=== PATIENT | female | born 1935 | race African-American/Black ===

== ENCOUNTER → 2016-12-20 | Outpatient (CLI) | payer MEDICARE, OTHER | LOC: RAD 12:22 | PROVIDERS: ATTEND Physician Assistant | DX: R10.32 Left lower quadrant pain (principal) | CPT/HCPCS: 74176 ==

== ENCOUNTER → 2017-03-27 | Outpatient (CLI) | payer MEDICARE, OTHER ==
--- NOTE | 2017-03-27 17:08 | RADIOLOGY REPORT (SQ) ---
EXAM DESCRIPTION: CAROTID DOPPLER COMPLETED DATE/TIME: 03/27/2017 2:27 pm REASON FOR STUDY: STENOSIS I65.29 I65.29 OCCLUSION AND STENOSIS OF UNSPECIFIED CAROTID ARTERY COMPARISON: 06/23/2014 TECHNIQUE: Grayscale ultrasound, Doppler velocity and spectra, and color Doppler images acquired of the extra-cranial carotid and vertebral arteries. Images stored on PACS. LIMITATIONS: None. FINDINGS: RIGHT CAROTID CCA Velocities: Within normal limits. ICA Velocities Peak systolic 0.78 m/s. End diastolic 0.22 m/s. Proximal ICA/CCA peak systolic ratio 1.0. There is calcific plaque at the right carotid bifurcation causing shadowing. Immediately distal to jf barrios shadowing plaque, right ICA velocities suggest less than 50% diameter stenosis. There is external carotid artery stenosis with peak systolic velocity 2.7 m/sec. LEFT CAROTID CCA Velocities: Within normal limits. ICA Velocities Peak systolic 2.8 m/s. End diastolic 0.45 m/s. Proximal ICA/CCA peak systolic ratio 2.6. There is calcific plaque at the left carotid bifurcation. Left ICA exhibits increased peak systolic and end diastolic velocities and turbulent flow indicating greater than 70% stenosis. This is simila r compared to study from 06/23/2014. Left external carotid artery stenosis with peak systolic velocit y 1.8 m/sec. VERTEBRAL ARTERIES: Antegrade flow. Normal waveforms. SUBCLAVIAN ARTERIES: Not examined OTHER: No other significant finding. IMPRESSION: Atherosclerotic disease at both carotid bifurcations. On the right, no flow significant ICA stenosis is present. On the left, there is greater than 70% internal carotid artery stenosis, s imilar compared to the study in 2013. COMMENT: Quality ID #[id number]: Velocity criteria are extrapolated from the diameter data as defined by jf barrios Society of Radiologists in Ultrasound Consensus Conference. Radiology 2003: 229; 340-346. TECHNICAL DOCUMENTATION: JOB ID: [id number]- All Rights Reserved
== END ==
LOC: SP 12:56
PROVIDERS: ATTEND Internal Medicine Cardiovascular Disease
DX: I65.29 Occlusion and stenosis of unspecified carotid artery (principal)
CPT/HCPCS: 93880

== ENCOUNTER 2017-12-17 17:38 | Emergency (ER) | payer MEDICARE, OTHER ==
--- NOTE | 2017-12-17 18:34 | ER Document Report ---
ED Medical Screen (RME) - General Chief Complaint: Chest Pain Stated Complaint: CHEST PAIN Time Seen by Provider: 12/17/17 18:33 Notes: Patient has had 2 weeks of exertional chest pain and shortness of breath. She was referred by Dr. Ingram to Dr. Peterson. She saw Dr. Peterson today and he referred her to the emergency department. TRAVEL OUTSIDE OF THE [place]S. IN LAST 30 DAYS: No - Related Data Allergies/Adverse Reactions: Sulfa (Sulfonamide Antibiotics) Allergy (Severe, Verified 06/20/11 07:25) Anaphylaxis Past Medical History - Social History Chew tobacco use (# tins/day): No Frequency of alcohol use: None Drug Abuse: None - Past Medical History Cardiac Medical History: Reports: Hx Coronary Artery Disease, Hx Heart Attack - , Hx Hypertension Pulmonary Medical History: Reports: Hx Asthma, Hx Pneumonia Denies: Hx Bronchitis, Hx COPD Neurological Medical History: Denies: Hx Cerebrovascular Accident, Hx Seizures Renal/ Medical History: Denies: Hx Peritoneal Dialysis Musculoskeltal Medical History: Reports Hx Arthritis Past Surgical History: Reports: Hx Hysterectomy. Denies: Hx Pacemaker - Immunizations Hx Diphtheria, Pertussis, Tetanus Vaccination: No Physical Exam - Vital signs Vitals: Temp Pulse Resp BP Pulse Ox 97.6 F 66 20 145/66 H 95 12/17/17 18:03 12/17/17 18:03 12/17/17 18:03 12/17/17 18:03 12/17/17 18:03 Course - Vital Signs Vital signs: Temp Pulse Resp BP Pulse Ox 97.6 F 66 20 145/66 H 95 12/17/17 18:03 12/17/17 18:03 12/17/17 18:03 12/17/17 18:03 12/17/17 18:03
[2017-12-17 18:42] LABS: ABSOLUTE BASOPHILS # (AUTO) 0.1 10^3/uL (0.0-0.2); ABSOLUTE EOSINOPHILS # (AUTO) 0.2 10^3/uL (0.0-0.6); ABSOLUTE LYMPHOCYTES (AUTO) 2.5 10^3/uL (0.5-4.7); ABSOLUTE MONOCYTES (AUTO) 0.6 10^3/uL (0.1-1.4); ABSOLUTE NEUT (AUTO) 4.5 10^3/uL (1.7-8.2); HEMATOCRIT 39.9 % (36.0-47.0); HEMOGLOBIN 13.1 g/dL (12.0-15.5); LYMPHOCYTES % (AUTO) 31.6 % (13-45); MEAN CORPUSCULAR HEMOGLOBIN 29.5 pg (27.0-33.4); MEAN CORPUSCULAR HGB CONC 32.9 g/dL (32.0-36.0); MEAN CORPUSCULAR VOLUME 90 fl (80-97); MONOCYTES % (AUTO) 7.7 % (3-13); PLATELET COUNT 283 10^3/uL (150-450); RED BLOOD COUNT 4.44 10^6/uL (3.72-5.28); SEGMENTED NEUTROPHILS % (AUTO) 57.7 % (42-78); TOTAL CELLS COUNTED % (AUTO) 100 %; WHITE BLOOD COUNT 7.8 10^3/uL (4.0-10.5)
[2017-12-17 18:49] LABS: ALANINE AMINOTRANSFERASE 15 U/L (9-52); ALBUMIN 4.1 g/dL (3.5-5.0); ALKALINE PHOSPHATASE 88 U/L (38-126); ANION GAP 15 (5-19); ASPARTATE AMINO TRANSFERASE 15 U/L (14-36); BILIRUBIN,DIRECT 0.2 mg/dL (0.0-0.4); BILIRUBIN,TOTAL 0.7 mg/dL (0.2-1.3); BLOOD UREA NITROGEN 13 mg/dL (7-20); CALCIUM 10.9 mg/dL (8.4-10.2); CARBON DIOXIDE 22 mmol/L (22-30); CHLORIDE 109 mmol/L (98-107); GLUCOSE 109 mg/dL (75-110); POTASSIUM 4.1 mmol/L (3.6-5.0); TOTAL PROTEIN 7.6 g/dL (6.3-8.2)
--- NOTE | 2017-12-17 19:36 | ER Document Report ---
ED General - General Mode of Arrival: Medic Information source: Patient, Relative TRAVEL OUTSIDE OF THE U.S. IN LAST 30 DAYS: No - HPI Onset: Other - 2 weeks Onset/Duration: Intermittent Quality of pain: Burning, Pressure Severity: Mild Pain Level: 1 Associated symptoms: Chest pain, Shortness of breath Exacerbated by: Denies Relieved by: Denies Similar symptoms previously: Yes Recently seen / treated by doctor: Yes <COY OLVERA - Last Filed: 12/17/17 23:48> <KYLE WILCOX V - Last Filed: 12/18/17 00:47> - General Chief Complaint: Chest Pain Stated Complaint: CHEST PAIN Time Seen by Provider: 12/17/17 18:33 Notes: 82-year-old female presents to ED for 2 weeks of exertional chest pain or shortness of breath. She was seen by Dr. Ingram and sent to Dr. Peterson the dynamic balancer. According to the patient and family she saw Dr. Garcia today he gave her 2 sprays of nitro due to her chest pain and pressure and sent her over to the emergency room. Patient states that her pain is much better now. She does have a history of a heart attack in high blood pressure high cholesterol coronary artery disease. Her CBC is within normal limits her chemistry troponin is less than 0.012 calcium 10.9 chloride 109 sodium 146. Will order repeat troponin and CK CK-MB. (COY OLVERA) - Related Data Allergies/Adverse Reactions: Sulfa (Sulfonamide Antibiotics) Allergy (Severe, Verified 06/20/11 07:25) Anaphylaxis Past Medical History - General Information source: Patient, Relative - Social History Smoking Status: Former Smoker Cigarette use (# per day): No Chew tobacco use (# tins/day): No Smoking Education Provided: No Frequency of alcohol use: None Drug Abuse: None Lives with: Alone Family History: Arthritis, CAD, CVA, DM, Hyperlipidemia, Hypertension, Malignancy. denies: COPD, Thyroid Disfunction Patient has suicidal ideation: No Patient has homicidal ideation: No - Past Medical History Cardiac Medical History: Reports: Hx Coronary Artery Disease, Hx Heart Attack - 07, Hx Hypercholesterolemia, Hx Hypertension Pulmonary Medical History: Reports: Hx Asthma, Hx Pneumonia EENT Medical History: Reports: None Neurological Medical History: Reports: None Endocrine Medical History: Reports: None Renal/ Medical History: Reports: None Malignancy Medical History: Reports: None GI Medical History: Reports: None Musculoskeltal Medical History: Reports Hx Arthritis, Reports Hx Musculoskeletal Deformity Skin Medical History: Reports None Psychiatric Medical History: Reports: None Traumatic Medical History: Reports: None Infectious Medical History: Reports: None Past Surgical History: Reports: Hx Abdominal Surgery - hernia repair mesh and removal of 6 inches of intestines, Hx Hysterectomy, Hx Orthopedic Surgery - b/l knees artificial knees - Immunizations Hx Diphtheria, Pertussis, Tetanus Vaccination: No Hx Pneumococcal Vaccination: 10/29/07 <COY OLVERA - Last Filed: 12/17/17 23:48> Review of Systems <COY OLVERA - Last Filed: 12/17/17 23:48> <KYLE WILCOX V - Last Filed: 12/18/17 00:47> - Review of Systems Notes: Constitutional: [PRESENT: as per HPI. ABSENT: chills, fever(s), headache(s), weight gain, weight loss] Eyes: [ABSENT: visual disturbances] Ears: [ABSENT: hearing changes] Cardiovascular: Patient complained of chest pain pressure and burning shortness of breath dyspnea with on exertion Respiratory: Short of breath with exertion dyspnea Gastrointestinal: Epigastric burning Genitourinary: [ABSENT: dysuria, hematuria] Musculoskeletal: [ABSENT: joint swelling] Integumentary: [ABSENT: rash, wounds] Neurological: [ABSENT: abnormal gait, abnormal speech, confusion, dizziness, focal weakness, syncope] Psychiatric: [ABSENT: anxiety, depression, homicidal ideation, suicidal ideation ] Endocrine: [ABSENT: cold intolerance, heat intolerance, menstrual abnormalities , polydipsia, polyuria] Hematologic/Lymphatic: [ABSENT: easy bleeding, easy bruising, lymphadenopathy] ( COY OLVERA) Physical Exam <COY OLVERA - Last Filed: 12/17/17 23:48> <KYLE WILCOX V - Last Filed: 12/18/17 00:47> - Vital signs Vitals: Temp Pulse Resp BP Pulse Ox 97.6 F 66 20 145/66 H 95 12/17/17 18:03 12/17/17 18:03 12/17/17 18:03 12/17/17 18:03 12/17/17 18:03 - Notes Notes: PHYSICAL EXAMINATION: GENERAL: Elderly 82-year-old obese female in no acute distress. HEAD: Atraumatic, normocephalic. EYES: Pupils equal round and reactive to light, extraocular movements intact, conjunctiva are normal. ENT: Nares patent, oropharynx clear without exudates. Moist mucous membranes. NECK: Normal range of motion, supple without lymphadenopathy LUNGS: Breath sounds clear to auscultation bilaterally and equal. No wheezes rales or rhonchi. HEART: Regular rate and rhythm without murmurs no chest discomfort no pain on palpation. ABDOMEN: Soft, nontender, nondistended abdomen. No guarding, no rebound. No masses appreciated. Female : deferred Musculoskeletal: Normal range of motion, no pitting or edema. No cyanosis. NEUROLOGICAL: Cranial nerves grossly intact. Normal speech, normal gait. Normal sensory, motor exams PSYCH: Normal mood, normal affect. SKIN: Warm, Dry, normal turgor, no rashes or lesions noted. (COY OLVERA) Course - Laboratory Result Diagrams: 12/17/17 17:03 12/17/17 17:03 <COY OLVERA - Last Filed: 12/17/17 23:48> - Laboratory Result Diagrams: 12/17/17 17:03 12/17/17 17:03 <KYLE WILCOX V - Last Filed: 12/18/17 00:47> - Re-evaluation Re-evalutation: 12/18/17 00:45 82-year-old lady with past medical history of hypertension, coronary artery disease who presented today for evaluation of chest pain. Patient was seen by her dynamic balancer Dr. Peterson who typically practices at [facility] who sent her here to rule out acute ACS. Patient was given nitroglycerin at the doctor's office that relieved the pain. Patient otherwise well-appearing. No chest pain at present time. Her EKG did not reveal any ischemic changes. Patient had 2 sets of troponins that were negative. Examination did not reveal any acute distress or abnormalities of her cardiovascular system. No peripheral edema. Patient was transferred to [facility] to be evaluated by cardiology team. Her heart score was approximately 6, which made her still high risk. The case was discussed with hospitalist, Dr. Wilian Tapia who accepted the transfer. (KYLE WILCOX V) - Vital Signs Vital signs: Temp Pulse Resp BP Pulse Ox 97.6 F 66 20 125/66 97 12/17/17 18:03 12/17/17 18:03 12/17/17 19:05 12/17/17 23:01 12/17/17 23:01 - Laboratory Laboratory results interpreted by me: 12/17/17 17:03 Sodium 146.0 H Chloride 109 H Est GFR (Non-Af Amer) 53 L Calcium 10.9 H Discharge <COY OLVERA - Last Filed: 12/17/17 23:48> <KYLE WILCOX V - Last Filed: 12/18/17 00:47> - Discharge Referrals: DAVE INGRAM MD [Primary Care Provider] - Follow up as needed
[2017-12-17 19:50] LABS: LIPASE 154.2 U/L (23-300)
[2017-12-17] MEDS ORDERED: ASPIRIN 81 MG TABLET, CHEWABLE PO ONE (23:56)
--- NOTE | 2017-12-18 00:24 | RADIOLOGY REPORT (SQ) ---
EXAM DESCRIPTION: CHEST PA/LAT CLINICAL HISTORY: chest pain COMPARISON: None. FINDINGS: Frontal and lateral views of the chest. The cardiomediastinal silhouette has normal size and contour. No consolidation, pneumothorax, or pleural effusion. Leads overlie the chest. Degenerative change of the spine. Upper abdominal soft tissues are unremarkable. IMPRESSION: 1. No acute pulmonary process identified.
[2017-12-18 02:10] VITALS: BP 142/65
--- NOTE | 2017-12-18 07:45 | EKG REPORT ---
SEVERITY:- NORMAL ECG - SINUS RHYTHM : Confirmed by: Christos Moon MD 18-Dec-2017 07:44:35
== END 2017-12-18 02:14 | disposition short-term general hospital (02) ==
LOC: ER 17:38
DX: R07.9 Chest pain, unspecified (principal); R06.02 Shortness of breath; I25.10 Atherosclerotic heart disease of native coronary artery without angina pectoris; E78.00 Pure hypercholesterolemia, unspecified; I10 Essential (primary) hypertension; Z88.2 Allergy status to sulfonamides; I25.2 Old myocardial infarction
CPT/HCPCS: 93005; 99285; 36415; 82553; 82550; 83690; 85025; 80053; 84484; 71046; 93010; A9270

== ENCOUNTER → 2018-04-08 | Outpatient (CLI) | payer MEDICARE, OTHER ==
[2018-04-08 11:22] LABS: HEMATOCRIT 36.5 % (36.0-47.0); MEAN CORPUSCULAR HEMOGLOBIN 29.4 pg (27.0-33.4); MEAN CORPUSCULAR HGB CONC 32.8 g/dL (32.0-36.0); MEAN CORPUSCULAR VOLUME 90 fl (80-97); PLATELET COUNT 256 10^3/uL (150-450); RED BLOOD COUNT 4.06 10^6/uL (3.72-5.28); RED CELL DISTRIBUTION WIDTH 14.5 % (11.5-14.0); WHITE BLOOD COUNT 7.4 10^3/uL (4.0-10.5)
[2018-04-08 12:03] LABS: ERYTHROCYTE SEDIMENTATION RATE 47 mm/hr (0-30)
[2018-04-08 12:10] LABS: ALANINE AMINOTRANSFERASE 12 U/L (9-52); ALBUMIN 3.4 g/dL (3.5-5.0); ALKALINE PHOSPHATASE 96 U/L (38-126); ANION GAP 11 (5-19); ASPARTATE AMINO TRANSFERASE 13 U/L (14-36); BILIRUBIN,DIRECT 0.3 mg/dL (0.0-0.4); BILIRUBIN,TOTAL 0.3 mg/dL (0.2-1.3); BLOOD UREA NITROGEN 18 mg/dL (7-20); CALCIUM 10.5 mg/dL (8.4-10.2); CARBON DIOXIDE 27 mmol/L (22-30); CHLORIDE 109 mmol/L (98-107); GLUCOSE 94 mg/dL (75-110); POTASSIUM 4.4 mmol/L (3.6-5.0); SODIUM 146.7 mmol/L (137-145); TOTAL PROTEIN 7.1 g/dL (6.3-8.2)
[2018-04-08 12:14] LABS: C-REACTIVE PROTEIN < 5.0 mg/L (<10.0)
== END ==
LOC: OD 10:14
PROVIDERS: ATTEND Orthopaedic Surgery
DX: M17.0 Bilateral primary osteoarthritis of knee (principal)
CPT/HCPCS: 36415; 80053; 85027; 85652; 86140

== ENCOUNTER → 2018-04-18 | Outpatient (CLI) | payer MEDICARE, OTHER ==
--- NOTE | 2018-04-18 16:31 | RADIOLOGY REPORT (SQ) ---
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 The route of agent administration: Intravenous. ADDITIONAL DRUGS AND DOSES: None. TECHNIQUE: Following injection of the radiopharmaceutical, serial blood flow images acquired. Equil ibrium blood pool images then acquired. Routine delayed images at 3 hours acquired of the areas of c linical concern with additional focused images as needed. AREA OF INTEREST: Left knee LIMITATIONS: None. FINDINGS: VASCULAR FLOW IMAGES: No asymmetry or focal areas of hyperemia. BLOOD POOL IMAGES: There is slightly increased blood pool in the distal right femur around the prosth esis. BONES: Normal visualization without areas of photopenia or increased bony uptake of radiopharmaceutic al. There is mild focal uptake in the left side of the mid lumbar spine, likely degenerative. KIDNEYS: Symmetric excretion without obstruction. OTHER: No other significant finding. IMPRESSION: Nonspecific three-phase bone scan of the knees. No significant interval changes. Findi ngs as described. COMMENT: Quality measure 147: Current bone scan is compared with any available plain radiographs, p rior bone scans, and CT/MRI. TECHNICAL DOCUMENTATION: JOB ID: [id number] [employer]- All Rights Reserved Reading location - IP/workstation name: [email or web address]
== END ==
LOC: RAD 11:25
PROVIDERS: ATTEND Orthopaedic Surgery
DX: T84.093A Other mechanical complication of internal left knee prosthesis, initial encounter (principal); T84.092A Other mechanical complication of internal right knee prosthesis, initial encounter; M25.562 Pain in left knee; Z96.653 Presence of artificial knee joint, bilateral
CPT/HCPCS: 78315; A9561; Q9969

== ENCOUNTER → 2019-01-27 | Outpatient (CLI) | payer MEDICARE, OTHER ==
--- NOTE | 2019-01-27 17:15 | RADIOLOGY REPORT (SQ) ---
EXAM DESCRIPTION: VENOUS UNILATERAL LOWER COMPLETED DATE/TIME: 01/27/2019 5:05 pm REASON FOR STUDY: LLE EDEMA R60.9 EDEMA, UNSPECIFIED COMPARISON: 06/23/2014 TECHNIQUE: Dynamic and static chavez scale and color images acquired of the left leg venous system. Se lected spectral images acquired with additional compression and augmentation maneuvers. The contralat eral common femoral vein and saphenofemoral junction were also imaged. Images stored on PACS. LIMITATIONS: None. FINDINGS: LEFT COMMON FEMORAL: Normal phasicity, compression and augmentation. No visualized echogenic material on g ray scale. No defects on color images. FEMORAL: Normal compression and augmentation. No visualized echogenic material on chavez scale. No defe cts on color images. POPLITEAL: Normal compression, augmentation. No visualized echogenic material on chavez scale. No defec ts on color images. POSTERIOR TIBIAL VEINS: Normal compression, augmentation. No visualized echogenic material on chavez sc shaina. No defects on color images. GSV: Normal compression, augmentation. No visualized echogenic material on chavez scale. No defects on color images. ANY DEEP VENOUS INSUFFICIENCY: Not evaluated. ANY EVIDENCE OF POPLITEAL CYST: No. OTHER: No other significant finding. RIGHT COMMON FEMORAL VEIN AND SAPHENOFEMORAL JUNCTION: Normal phasicity, compression and augmentation. No visualized echogenic material on chavez scale. No de fects on color images. IMPRESSION: NO EVIDENCE OF DVT OR SVT IN THE LEFT LEG. TECHNICAL DOCUMENTATION: JOB ID: [id number] [employer]- All Rights Reserved Reading location - IP/workstation name: [email or web address]
== END ==
LOC: SP 16:28
PROVIDERS: ATTEND Physician Assistant
DX: M79.662 Pain in left lower leg (principal); R60.9 Edema, unspecified
CPT/HCPCS: 93971

== ENCOUNTER 2019-04-03 01:00 | Inpatient (IN) | payer MEDICARE, OTHER ==
--- NOTE | 2019-04-03 03:45 | RADIOLOGY REPORT (SQ) ---
EXAM DESCRIPTION: XR KNEE 1-2 VIEWS COMPLETED DATE/TME: 04/03/2019 02:01 CLINICAL HISTORY: 83 years, Female, fall, pain COMPARISON: None. NUMBER OF VIEWS: Two TECHNIQUE: Two views of the right knee LIMITATIONS: None. FINDINGS: There is no acute fracture or dislocation. There are changes of a right knee arthroplasty with no evidence of hardware complication. No large soft tissue swelling. IMPRESSION: No acute fracture or dislocation copyright 2010 [employer]- All Rights Reserved
--- NOTE | 2019-04-03 03:47 | RADIOLOGY REPORT (SQ) ---
EXAM DESCRIPTION: CT CERVICAL SPINE WITHOUT IV CONTRAST COMPLETED DATE/TME: 04/03/2019 02:01 CLINICAL HISTORY: 83 years, Female, falls, pain COMPARISON: None. TECHNIQUE: Axial CT images of the cervical spine were obtained without contrast. Sagittal and coronal reformats were done. DLP 765 Images stored on PACS. All CT scanners at this facility use dose modulation, iterative reconstruction, and/or weight based dosing when appropriate to reduce radiation dose to as low as reasonably achievable (ALARA). [facility]: Dose Right [facility]: CareDose [facility]: Dose Right [facility]: Teradose 4D [facility]: Checkpoint Surgical LIMITATIONS: None. FINDINGS: There is no acute fracture or subluxation. The alignment of the cervical spine is satisfactory. The vertebral heights are maintained. The prevertebral soft tissues are normal. The craniocervical junction is intact. The odontoid process is intact. There is multilevel spondylosis with disc space narrowing and marginal osteophytes. There is moderate left-sided neural foraminal narrowing at C4-C5. IMPRESSION: No acute fracture or subluxation. TECHNICAL DOCUMENTATION: Quality ID # 436: Final reports with documentation of one or more dose reduction techniques (e.g., Automated exposure control, adjustment of the mA and/or kV according to patient size, use of iterative reconstruction technique) copyright 2011 [employer]- All Rights Reserved
--- NOTE | 2019-04-03 03:48 | RADIOLOGY REPORT (SQ) ---
EXAM DESCRIPTION: XR CHEST 1 VIEW COMPLETED DATE/TME: 04/03/2019 02:00 CLINICAL HISTORY: 83 years, Female, weakness COMPARISON: 12/18/2017 NUMBER OF VIEWS: One TECHNIQUE: AP view of the chest LIMITATIONS: The left costophrenic angle has been collimated from view FINDINGS: The left costophrenic angle has been collimated from view. Opacities along the lung bases is likely due to overlying soft tissue. The upper lobes are clear. The heart is at the upper limit of normal in size. There is no pneumothorax or large. There is no acute fracture. IMPRESSION: No acute cardiopulmonary abnormality copyright 2010 [employer]- All Rights Reserved
[2019-04-03 04:21] LABS: ABSOLUTE BASOPHILS # (AUTO) 0.1 10^3/uL (0.0-0.2); ABSOLUTE EOSINOPHILS # (AUTO) 0.1 10^3/uL (0.0-0.6); ABSOLUTE LYMPHOCYTES (AUTO) 1.4 10^3/uL (0.5-4.7); ABSOLUTE MONOCYTES (AUTO) 0.8 10^3/uL (0.1-1.4); ABSOLUTE NEUT (AUTO) 7.2 10^3/uL (1.7-8.2); BASOPHILS % (AUTO) 0.9 % (0-2); EOSINOPHILS % (AUTO) 1.3 % (0-6); HEMATOCRIT 34.5 % (36.0-47.0); HEMOGLOBIN 11.2 g/dL (12.0-15.5); LYMPHOCYTES % (AUTO) 14.8 % (13-45); MEAN CORPUSCULAR HEMOGLOBIN 29.5 pg (27.0-33.4); MEAN CORPUSCULAR HGB CONC 32.6 g/dL (32.0-36.0); MEAN CORPUSCULAR VOLUME 91 fl (80-97); MONOCYTES % (AUTO) 8.5 % (3-13); PLATELET COUNT 225 10^3/uL (150-450); RED BLOOD COUNT 3.81 10^6/uL (3.72-5.28); RED CELL DISTRIBUTION WIDTH 14.5 % (11.5-14.0); SEGMENTED NEUTROPHILS % (AUTO) 74.5 % (42-78); TOTAL CELLS COUNTED % (AUTO) 100 %; WHITE BLOOD COUNT 9.7 10^3/uL (4.0-10.5)
[2019-04-03 04:22] LABS: APPEARANCE,URINE SLIGHTLY-CLOUDY; BILIRUBIN,URINE NEGATIVE (NEGATIVE); COLOR,URINE YELLOW; GLUCOSE, URINE NEGATIVE (NEGATIVE); KETONES,URINE NEGATIVE (NEGATIVE); LEUKOCYTE ESTERASE,URINE NEGATIVE (NEGATIVE); NITRITE,URINE NEGATIVE (NEGATIVE); PROTEIN,URINE NEGATIVE (NEGATIVE); URINE SPECIFIC GRAVITY 1.013; UROBILINOGEN,URINE NEGATIVE mg/dL (<2.0)
[2019-04-03 04:35] LABS: ALANINE AMINOTRANSFERASE 12 U/L (9-52); ALBUMIN 3.5 g/dL (3.5-5.0); ALKALINE PHOSPHATASE 65 U/L (38-126); ANION GAP 11 (5-19); ASPARTATE AMINO TRANSFERASE 58 U/L (14-36); BILIRUBIN,DIRECT 0.6 mg/dL (0.0-0.4); BILIRUBIN,TOTAL 1.1 mg/dL (0.2-1.3); BLOOD UREA NITROGEN 45 mg/dL (7-20); CARBON DIOXIDE 22 mmol/L (22-30); CHLORIDE 107 mmol/L (98-107); GLUCOSE 93 mg/dL (75-110); SODIUM 140.3 mmol/L (137-145); TOTAL PROTEIN 7.7 g/dL (6.3-8.2)
[2019-04-03 04:39] LABS: POTASSIUM 6.2 mmol/L (3.6-5.0)
[2019-04-03] MEDS ORDERED: INSULIN REG, HUMAN 100 UNIT/ML 3 ML VIAL (PYX) IV ONE (04:49)
[2019-04-03] MEDS ORDERED: DEXTROSE 50%-WATER 25 GM/50 ML DISP.SYRIN IV ONE (04:49)
[2019-04-03] MEDS ORDERED: SODIUM POLYSTYRENE SULFONATE 15 GM/60 ML PO ONE (04:49)
[2019-04-03] MEDS ORDERED: NORMAL SALINE 500 ML IV ONE (04:53)
--- NOTE | 2019-04-03 04:54 | ER Document Report ---
ED General - General Chief Complaint: Fall Stated Complaint: FALL Time Seen by Provider: 04/03/19 01:36 Primary Care Provider: JOSE BETH MD [Primary Care Provider] - Follow up as needed TRAVEL OUTSIDE OF THE [place] IN LAST 30 DAYS: No - HPI Notes: Patient is an 83-year-old female presents to the emergency department for evaluation. Her son is the primary historian. According to the son, she still lives on her own. Starting at [facility], she has been having frequent falls. He will stop to see her and she will be lying on the floor. Today she did have some problem with weakness. She had fallen to her knees and was sitting on the floor when he found her earlier this morning. He helped her up. He went to work and came back to find her sitting on the toilet. She was unable to get up on her own power. He and his sister tried and were unable to raise the woman. They called 911 for further evaluation. The patient complains of pain in her right knee, which she said she struck. Otherwise she denies any pain. She has been having increased weakness for the last several weeks. Patient's son also states that she has been getting increasingly forgetful. Her short-term memory is significantly worse. He is concerned about her living on her own. - Related Data Allergies/Adverse Reactions: Sulfa (Sulfonamide Antibiotics) Allergy (Severe, Verified 04/03/19 01:26) Anaphylaxis Past Medical History - General Information source: Patient, Relative - Social History Smoking Status: Unknown if Ever Smoked Family History: Arthritis, CAD, CVA, DM, Hyperlipidemia, Hypertension, Malignan cy Patient has suicidal ideation: No Patient has homicidal ideation: No - Past Medical History Cardiac Medical History: Reports: Hx Coronary Artery Disease, Hx Heart Attack - 07, Hx Hypercholesterolemia, Hx Hypertension Pulmonary Medical History: Reports: Hx Asthma, Hx Pneumonia Denies: Hx Bronchitis, Hx COPD Neurological Medical History: Denies: Hx Cerebrovascular Accident, Hx Seizures Renal/ Medical History: Denies: Hx Peritoneal Dialysis Musculoskeletal Medical History: Reports Hx Arthritis, Reports Hx Musculoskeletal Deformity Past Surgical History: Reports: Hx Abdominal Surgery - hernia repair mesh and removal of 6 inches of intestines, Hx Hysterectomy, Hx Orthopedic Surgery - b/l knees artificial knees. Denies: Hx Pacemaker - Immunizations Hx Diphtheria, Pertussis, Tetanus Vaccination: No Hx Pneumococcal Vaccination: 10/29/07 Review of Systems - Review of Systems Constitutional: See HPI EENT: No symptoms reported Cardiovascular: No symptoms reported Respiratory: No symptoms reported Gastrointestinal: No symptoms reported Genitourinary: No symptoms reported Female Genitourinary: No symptoms reported Musculoskeletal: See HPI Skin: No symptoms reported Neurological/Psychological: See HPI Physical Exam - Vital signs Vitals: Temp Pulse BP Pulse Ox 98.4 F 83 91/39 L 90 L 04/03/19 01:32 04/03/19 01:32 04/03/19 01:32 04/03/19 01:32 - Notes Notes: Vital signs reviewed, please refer to chart. Patient is an obese 83-year-old female, no acute distress. Head is normocephalic, atraumatic. Pupils equal round, reactive to light. Neck is supple without meningismus. Heart is regular rate and rhythm. Lung exam is limited by body habitus, but no wheezes, rales, rhonchi appreciated. Abdomen is soft, nontender, normoactive bowel sounds throughout. Extremities without cyanosis, clubbing. Posterior calves are nontender. She does have well-healing surgical scars from bilateral knee replacements. She is tender to palpation over the right knee, passive range of motion does elicit some pain. Peripheral pulses are equal. Skin is warm and dry. Patient is awake, alert, disoriented to time. She does have some generalized weakness, but no focal findings. No gross facial asymmetry. Course - Re-evaluation Re-evalutation: 04/03/19 05:11 Patient presents emergency department for evaluation. She has had progressive weakness. Laboratory investigations were obtained. The patient was placed on patient monitor. Her blood pressures have been marginal. I do not have any old echocardiograms here, but the patient had been on Lasix in the past. I did defer IV fluids as the patient was not complaining of dizziness. I did, however, find that the patient does have hyperkalemia and acute renal failure. My suspicion, given her weakness and low blood pressure here, is that this is likely prerenal. Laboratory investigations are otherwise unremarkable. Her hyperkalemia is treated with insulin, glucose, Kayexalate. She is not have any EKG changes. Her QRS duration is normal. She does not have peak T waves. Will contact medicine for admission. 04/03/19 05:[address] Bar. He asked that a CPK, troponin, TSH be added. He will accept the patient to telemetry. - Vital Signs Vital signs: Temp Pulse Resp BP Pulse Ox 98.4 F 83 15 94/76 L 95 04/03/19 01:32 04/03/19 01:32 04/03/19 04:00 04/03/19 02:02 04/03/19 04:00 - Laboratory Result Diagrams: 04/03/19 03:36 04/03/19 03:36 Laboratory results interpreted by me: 04/03/19 04/03/19 03:36 03:36 Hgb 11.2 L Hct 34.5 L RDW 14.5 H Potassium 6.2 H* BUN 45 H Creatinine 4.11 H Est GFR ( Amer) 13 L Est GFR (Non-Af Amer) 10 L Direct Bilirubin 0.6 H AST 58 H - Diagnostic Test Radiology reviewed: Reports reviewed Radiology results interpreted by me: 04/03/19 05:10 Chest X-Ray 04/03/19 02:00 IMPRESSION: No acute cardiopulmonary abnormality copyright 2011 [email or web address]- All Rights Reserved Cervical Spine CT 04/03/19 02:01 IMPRESSION: No acute fracture or subluxation. TECHNICAL DOCUMENTATION: Quality ID # 436: Final reports with documentation of one or more dose reduction techniques (e.g., Automated exposure control, adjustment of the mA and/or kV according to patient size, use of iterative reconstruction technique) copyright 2011 [email or web address]- All Rights Reserved Knee X-Ray 04/03/19 02:01 IMPRESSION: No acute fracture or dislocation copyright 2010 [email or web address]- All Rights Reserved - EKG Interpretation by Me Additional EKG results interpreted by me: 04/03/19 05:10 Sinus mechanism with a rate of 78 bpm. First-degree AV block. Anterior T wave inversions that may be within normal limits versus ischemic change. No significant change when compared to prior. Discharge - Discharge Clinical Impression: Hyperkalemia, Acute renal failure Condition: Stable Disposition: ADMITTED INPATIENT Admitting Provider: Yosvany (Hospitalist) Unit Admitted: Telemetry Referrals: JOSE BETH MD [Primary Care Provider] - Follow up as needed
[2019-04-03] MEDS ORDERED: HYDRALAZINE HCL INJ/PF 20 MG/1 ML SDV IV PRN (05:41)
[2019-04-03] MEDS ORDERED: MAG HYDROX/AL HYDROX/SIMETH SUSP 30 ML UDCUP PO PRN (05:44)
[2019-04-03] MEDS ORDERED: MAGNESIUM HYDROXIDE SUSP 30 ML UDCUP PO PRN (05:44)
[2019-04-03] MEDS ORDERED: GLUCAGON,HUMAN RECOMB 1 MG INJ IM PRN (05:44)
[2019-04-03] MEDS ORDERED: DEXTROSE 40% GEL 15 GM TUBE PO PRN ×2 (05:44)
[2019-04-03] MEDS ORDERED: DEXTROSE 50%-WATER 25 GM/50 ML DISP.SYRIN IV PRN ×2 (05:44)
[2019-04-03] MEDS ORDERED: IPRATROPIUM/ALBUTEROL 0.5-2.5 MG/3 ML AMPUL NEB PRN (05:44)
[2019-04-03] MEDS ORDERED: LACTULOSE SYRUP 20 GM/30 ML UDCUP PO ONE (06:00)
--- NOTE | 2019-04-03 06:00 | PDOC H&P ---
History of Present Illness Admission Date/PCP: JOSE BETH MD Patient complains of: Fall History of Present Illness: MIGUEL ANGEL MISHRA is a 83 year old female with a past medical history of morbid obesity, chronic constipation, generalized debility and dementia. She is a poor historian and subsequently history is obtained from the record. She presents with her son who is no longer available after sustaining multiple falls and worsening generalized weakness. Patient was found unable to get up from the toilet for several hours and brought to the emergency room for evaluation. She denies pain but is otherwise a poor historian only able to defer to her son who is unavailable. In the emergency department she is found to have hyperkalemia without peak T waves and acute renal failure. She is referred to the hospitalist for admission. Medication reconciliation is unavailable Past Medical History Cardiac Medical History: Reports: Coronary Artery Disease, Myocardial Infarction - 07, Hyperlipidema, Hypertension Pulmonary Medical History: Reports: Asthma, Pneumonia Denies: Bronchitis, Chronic Obstructive Pulmonary Disease (COPD) Neurological Medical History: Denies: Seizures Musculoskeltal Medical History: Reports: Arthritis Hematology: Denies: Anemia Past Surgical History Past Surgical History: Reports: Hysterectomy, Orthopedic Surgery - b/l knees artificial knees Denies: Pacemaker Social History Information Source: Patient Lives with: Alone Smoking Status: Unknown if Ever Smoked Frequency of Alcohol Use: None Drugs: None - Advance Directive Resuscitation Status: Full Code Family History Family History: Arthritis, CAD, CVA, DM, Hyperlipidemia, Hypertension, Malignancy Parental Family History Reviewed: No - Unobtainable Children Family History Reviewed: No - Unobtainable Sibling(s) Family History Reviewed.: No - Unobtainable Medication/Allergy Allergies/Adverse Reactions: Sulfa (Sulfonamide Antibiotics) Allergy (Severe, Verified 04/03/19 01:26) Anaphylaxis Review of Systems ROS unobtainable: Due to mental status - Dementia but socially appropriate Physical Exam Vital Signs: Temp Pulse Resp BP Pulse Ox 98.4 F 83 15 94/76 L 95 04/03/19 01:32 04/03/19 01:32 04/03/19 04:00 04/03/19 02:02 04/03/19 04:00 Intake & Output 04/01/19 04/02/19 04/03/19 11:59 11:59 11:59 Weight 131.5 kg General appearance: PRESENT: no acute distress, cooperative, morbidly obese, other - Morbidly obese with severe debility Head exam: PRESENT: atraumatic, normocephalic Eye exam: PRESENT: conjunctiva pink, EOMI, PERRLA. ABSENT: scleral icterus Ear exam: PRESENT: normal external ear exam Mouth exam: PRESENT: dry mucosa, tongue midline Neck exam: ABSENT: carotid bruit, JVD, lymphadenopathy, thyromegaly Respiratory exam: PRESENT: crackles. ABSENT: accessory muscle use, rales, rhonchi, wheezes Cardiovascular exam: PRESENT: RRR. ABSENT: diastolic murmur, rubs, systolic murmur Pulses: PRESENT: normal dorsalis pedis pul Vascular exam: PRESENT: normal capillary refill GI/Abdominal exam: PRESENT: normal bowel sounds, soft. ABSENT: distended, guarding, mass, organolmegaly, rebound, tenderness Rectal exam: PRESENT: deferred Extremities exam: PRESENT: full ROM. ABSENT: calf tenderness, clubbing, pedal edema Neurological exam: PRESENT: alert, awake, oriented to person, CN II-XII grossly intact. ABSENT: oriented to time - Patient states year as the fall of 1928, motor sensory deficit Psychiatric exam: PRESENT: appropriate affect, normal mood. ABSENT: homicidal ideation, suicidal ideation Skin exam: PRESENT: dry, intact, warm. ABSENT: cyanosis, rash Results Laboratory Results: 04/03/19 03:36 04/03/19 03:36 04/03/19 04/03/19 04/03/19 03:36 03:36 03:36 WBC 9.7 RBC 3.81 Hgb 11.2 L Hct 34.5 L MCV 91 MCH 29.5 MCHC 32.6 RDW 14.5 H Plt Count 225 Seg Neutrophils % 74.5 Lymphocytes % 14.8 Monocytes % 8.5 Eosinophils % 1.3 Basophils % 0.9 Absolute Neutrophils 7.2 Absolute Lymphocytes 1.4 Absolute Monocytes 0.8 Absolute Eosinophils 0.1 Absolute Basophils 0.1 Sodium 140.3 Potassium 6.2 H* Chloride 107 Carbon Dioxide 22 Anion Gap 11 BUN 45 H Creatinine 4.11 H Est GFR ( Amer) 13 L Est GFR (Non-Af Amer) 10 L Glucose 93 Lactic Acid 1.8 Calcium 10.0 Total Bilirubin 1.1 AST 58 H ALT 12 Alkaline Phosphatase 65 Total Protein 7.7 Albumin 3.5 Urine Color Urine Appearance Urine pH Ur Specific [place] Urine Protein Urine Glucose (UA) Urine Ketones Urine Blood Urine Nitrite Ur Leukocyte Esterase Urine WBC (Auto) Urine RBC (Auto) 04/03/19 03:36 WBC RBC Hgb Hct MCV MCH MCHC RDW Plt Count Seg Neutrophils % Lymphocytes % Monocytes % Eosinophils % Basophils % Absolute Neutrophils Absolute Lymphocytes Absolute Monocytes Absolute Eosinophils Absolute Basophils Sodium Potassium Chloride Carbon Dioxide Anion Gap BUN Creatinine Est GFR ( Amer) Est GFR (Non-Af Amer) Glucose Lactic Acid Calcium Total Bilirubin AST ALT Alkaline Phosphatase Total Protein Albumin Urine Color YELLOW Urine Appearance SLIGHTLY-CLOUDY Urine pH 5.0 Ur Specific [place] 1.013 Urine Protein NEGATIVE Urine Glucose (UA) NEGATIVE Urine Ketones NEGATIVE Urine Blood NEGATIVE Urine Nitrite NEGATIVE Ur Leukocyte Esterase NEGATIVE Urine WBC (Auto) 1 Urine RBC (Auto) 1 Impressions: Chest X-Ray 04/03/19 02:00 IMPRESSION: No acute cardiopulmonary abnormality copyright 2010 [employer]- All Rights Reserved Cervical Spine CT 04/03/19 02:01 IMPRESSION: No acute fracture or subluxation. TECHNICAL DOCUMENTATION: Quality ID # 436: Final reports with documentation of one or more dose reduction techniques (e.g., Automated exposure control, adjustment of the mA and/or kV according to patient size, use of iterative reconstruction technique) copyright 2010 [employer]- All Rights Reserved Knee X-Ray 04/03/19 02:01 IMPRESSION: No acute fracture or dislocation copyright 2010 [employer]- All Rights Reserved Assessment and Plan - Diagnosis (1) Acute renal failure Is this a current diagnosis for this admission?: Yes Plan: Concern for multiple falls, follow-up total CK and renal ultrasound. IV fluid challenge, follow-up chemistry (2) Hyperkalemia Is this a current diagnosis for this admission?: Yes Plan: Likely multifactorial secondary to acute kidney injury and constipation, IV fluid challenge, lactulose and follow-up chemistry (3) Dementia Is this a current diagnosis for this admission?: Yes Plan: Patient reportedly living independently but clearly requiring 100% care of IADLs. Discharge planning consulted (4) Difficulty walking Is this a current diagnosis for this admission?: Yes Plan: Multifactorial, consider physical therapy if mental status improved (5) Muscle weakness (generalized) Is this a current diagnosis for this admission?: Yes Plan: Evaluate for hypothyroid but most likely secondary to severe debility and morbid obesity. - Time Time Spent with patient: 35 or more minutes - Inpatient Certification Medical Necessity: Need Close Monitoring Due to Risk of Patient Decompensation
--- NOTE | 2019-04-03 06:31 | ADVANCED CARE ---
Attendance: Patient Resuscitation Status: Full Code Discussion: Patient urged to consider healthcare proxy. Patient indicates carissa Patel. Time Spent: Total time 17 minutes
[2019-04-03] MEDS: HEPARIN SOD (PORCINE) 5,000 UNIT/ML 1 ML SYRINGE SUBCUT SCH ×3 (06:41→22:11)
--- NOTE | 2019-04-03 06:45 | RADIOLOGY REPORT (SQ) ---
EXAM DESCRIPTION: US RETROPERITONEUM LIMITED COMPLETED DATE/TME: 04/03/2019 00:00 CLINICAL HISTORY: 83 years Female, arf Comparison: CT, 12/20/16 LIMITATIONS: None. FINDINGS: Likely benign renal cyst(s) measuring up to 4.67 m on the right and 2.5 cm on the left, not definitively characterized. 10-cm right kidney, 12-cm left kidney, and urinary bladder appear otherwise of normal size, shape, echotexture, and vascularity. IMPRESSION: Normal renal sonogram.
--- NOTE | 2019-04-03 07:41 | EKG REPORT ---
SEVERITY:- ABNORMAL ECG - SINUS RHYTHM RIGHT AXIS DEVIATION LOW VOLTAGE IN FRONTAL LEADS BORDERLINE T ABNORMALITIES, ANTERIOR LEADS, NEW COMPARED TO 12/17/17 EKG. : Confirmed by: Christos Moon MD 03-Apr-2019 07:40:38
[2019-04-03] MEDS: NORMAL SALINE 1000 ML 1,000 ML IV PRN ×3 (07:54→17:54)
[2019-04-03 09:47] LABS: ANION GAP 11 (5-19); BLOOD UREA NITROGEN 42 mg/dL (7-20); CALCIUM 10.1 mg/dL (8.4-10.2); CARBON DIOXIDE 19 mmol/L (22-30); CHLORIDE 110 mmol/L (98-107); SODIUM 140.2 mmol/L (137-145)
[2019-04-03 09:50] LABS: GLUCOSE 61 mg/dL (75-110)
[2019-04-03 09:55] LABS: POTASSIUM 4.6 mmol/L (3.6-5.0)
[2019-04-03 11:26] LABS: URINE CREATININE 171.3 mg/dL (15-278)
--- NOTE | 2019-04-03 17:54 | Progress Note ---
Provider Note Provider Note: Assumed care. Ms. Martinez is an 83-year-old female who was admitted earlier this morning. She was noted to be in acute renal failure and was noted to have hyperkalemia. She received fluid boluses in the ER. And was also given an glucose, insulin and Kayexalate regimen. Repeat potassium has normalized. Upon encounter, she is more awake and conversant. She does say that she has been having poor oral intake in the past few days. Currently getting a fluid bolus. We will switch to normal saline 125 cc/h after this. FeNa ordered and is 1%, more consistent with prerenal JEVON. Repeat BMP this afternoon.
[2019-04-03 19:53] LABS: ANION GAP 8 (5-19); BLOOD UREA NITROGEN 35 mg/dL (7-20); CALCIUM 9.5 mg/dL (8.4-10.2); CARBON DIOXIDE 23 mmol/L (22-30); CHLORIDE 110 mmol/L (98-107); GLUCOSE 85 mg/dL (75-110); POTASSIUM 4.6 mmol/L (3.6-5.0); SODIUM 141.3 mmol/L (137-145)
[2019-04-04] MEDS: NORMAL SALINE 1000 ML 1,000 ML IV PRN ×2 (01:55→12:08)
[2019-04-04] MEDS: HEPARIN SOD (PORCINE) 5,000 UNIT/ML 1 ML SYRINGE SUBCUT SCH ×3 (05:05→21:06)
[2019-04-04 05:38] LABS: ABSOLUTE BASOPHILS # (AUTO) 0.1 10^3/uL (0.0-0.2); ABSOLUTE EOSINOPHILS # (AUTO) 0.3 10^3/uL (0.0-0.6); ABSOLUTE LYMPHOCYTES (AUTO) 2.3 10^3/uL (0.5-4.7); ABSOLUTE MONOCYTES (AUTO) 0.5 10^3/uL (0.1-1.4); ABSOLUTE NEUT (AUTO) 3.4 10^3/uL (1.7-8.2); BASOPHILS % (AUTO) 1.4 % (0-2); EOSINOPHILS % (AUTO) 4.7 % (0-6); HEMATOCRIT 31.4 % (36.0-47.0); HEMOGLOBIN 10.2 g/dL (12.0-15.5); LYMPHOCYTES % (AUTO) 34.3 % (13-45); MEAN CORPUSCULAR HEMOGLOBIN 29.2 pg (27.0-33.4); MEAN CORPUSCULAR HGB CONC 32.5 g/dL (32.0-36.0); MEAN CORPUSCULAR VOLUME 90 fl (80-97); MONOCYTES % (AUTO) 8.2 % (3-13); PLATELET COUNT 186 10^3/uL (150-450); RED CELL DISTRIBUTION WIDTH 14.2 % (11.5-14.0); SEGMENTED NEUTROPHILS % (AUTO) 51.4 % (42-78); TOTAL CELLS COUNTED % (AUTO) 100 %; WHITE BLOOD COUNT 6.6 10^3/uL (4.0-10.5)
[2019-04-04 05:46] LABS: ANION GAP 9 (5-19); BLOOD UREA NITROGEN 27 mg/dL (7-20); CALCIUM 9.4 mg/dL (8.4-10.2); CARBON DIOXIDE 20 mmol/L (22-30); CHLORIDE 114 mmol/L (98-107); GLUCOSE 73 mg/dL (75-110); POTASSIUM 4.2 mmol/L (3.6-5.0); SODIUM 142.8 mmol/L (137-145)
[2019-04-04] MEDS: LACTULOSE SYRUP 20 GM/30 ML UDCUP PO SCH (09:42)
[2019-04-04] MEDS: ACETAMINOPHEN 325 MG TABLET PO PRN ×2 (14:28→21:04)
--- NOTE | 2019-04-04 19:23 | PDOC PROGRESS REPORT ---
Subjective Progress Note for:: 04/04/19 Subjective:: MIGUEL ANGEL MISHRA is a 83 year old female with a past medical history of morbid obesity, chronic constipation, generalized debility and dementia. She is a poor historian and subsequently history is obtained from the record. She presents with her son who is no longer available after sustaining multiple falls and worsening generalized weakness. Patient was found unable to get up from the toilet for several hours and brought to the emergency room for evaluation. She denies pain but is otherwise a poor historian only able to defer to her son who is unavailable. In the emergency department she is found to have hyperkalemia without peak T waves and acute renal failure. She is referred to the hospitalist for admission. Medication reconciliation is unavailable 04/04/2019. No acute events overnight. On my examination patient is alert awake and cooperative with physical examination. Planing of generalized fatigue. Denies any fever, chills, nausea, vomiting, diarrhea, constipation or any urinary symptoms. Reason For Visit: ARF,HYPERKALEMIA,MORBID OBESITY,DEMENTIA Physical Exam Vital Signs: Temp Pulse Resp BP Pulse Ox 98.3 F 71 18 124/51 L 96 04/04/19 16:00 04/04/19 16:00 04/04/19 16:00 04/04/19 16:00 04/04/19 16:00 Intake & Output 04/03/19 04/04/19 04/05/19 06:59 06:59 06:59 Intake Total 4720 1690 Output Total 1900 1000 Balance 2820 690 Weight 131.5 kg 123.6 kg General appearance: PRESENT: morbidly obese Head exam: PRESENT: atraumatic, normocephalic Neck exam: ABSENT: carotid bruit, JVD, lymphadenopathy, thyromegaly Cardiovascular exam: PRESENT: RRR. ABSENT: diastolic murmur, rubs, systolic murmur GI/Abdominal exam: PRESENT: normal bowel sounds, soft. ABSENT: distended, guard ing, mass, organolmegaly, rebound, tenderness Extremities exam: PRESENT: full ROM. ABSENT: calf tenderness, clubbing, pedal edema Neurological exam: PRESENT: alert, awake, oriented to person, oriented to place, oriented to time, oriented to situation, CN II-XII grossly intact. ABSENT: motor sensory deficit Results Laboratory Results: 04/04/19 04:40 04/04/19 04:40 04/03/19 04/04/19 04/04/19 18:57 04:40 04:40 WBC 6.6 RBC 3.50 L Hgb 10.2 L Hct 31.4 L MCV 90 MCH 29.2 MCHC 32.5 RDW 14.2 H Plt Count 186 Seg Neutrophils % 51.4 Lymphocytes % 34.3 Monocytes % 8.2 Eosinophils % 4.7 Basophils % 1.4 Absolute Neutrophils 3.4 Absolute Lymphocytes 2.3 Absolute Monocytes 0.5 Absolute Eosinophils 0.3 Absolute Basophils 0.1 Sodium 141.3 142.8 Potassium 4.6 4.2 Chloride 110 H 114 H Carbon Dioxide 23 20 L Anion Gap 8 9 BUN 35 H 27 H Creatinine 3.11 H 2.30 H Est GFR ( Amer) 17 L 25 L Est GFR (Non-Af Amer) 14 L 20 L Glucose 85 73 L Calcium 9.5 9.4 04/03/19 04/03/19 04/03/19 03:36 03:36 07:15 Creatine Kinase Cancelled 809 H Troponin I Cancelled 04/03/19 07:15 Creatine Kinase Troponin I < 0.012 Impressions: Renal Ultrasound 04/03/19 00:00 IMPRESSION: Normal renal sonogram. Chest X-Ray 04/03/19 02:00 IMPRESSION: No acute cardiopulmonary abnormality copyright 2010 [employer]- All Rights Reserved Cervical Spine CT 04/03/19 02:01 IMPRESSION: No acute fracture or subluxation. TECHNICAL DOCUMENTATION: Quality ID # 436: Final reports with documentation of one or more dose reduction techniques (e.g., Automated exposure control, adjustment of the mA and/or kV according to patient size, use of iterative reconstruction technique) copyright 2010 [employer]- All Rights Reserved Knee X-Ray 04/03/19 02:01 IMPRESSION: No acute fracture or dislocation copyright 2011 [employer]- All Rights Reserved Assessment and Plan - Diagnosis (1) Rhabdomyolysis Qualifiers: Rhabdomyolysis type: traumatic Encounter type: initial encounter Qualified Code(s): T79.6XXA - Traumatic ischemia of muscle, initial encounter Is this a current diagnosis for this admission?: Yes Plan: Due to multiple falls. CK 809, creatinine 4.11 on admission. Continue IV fluids guided by volume status. Kidnye function improving sig nificantly. CK and BMP tomorrow. (2) Acute renal failure Is this a current diagnosis for this admission?: Yes Plan: Likely due to rhabdomyolysis and dehydration. Patient is stating that she is not drinking too much because she does not want to be running to the restroom. Improving. Electrolytes within normal limits. Continue IV fluids guided by volume status. CMP tomorrow. (3) Physical deconditioning Is this a current diagnosis for this admission?: Yes Plan: PT/OT consulted. Recommending rehab. Physical deconditioning may be a contributing factor to her recurrent falls and JEVON. Plan is to transfer patient to rehab however patient is not open to the idea stating that she has things to do before going to rehab. She live a son who is living with her which is not available in the room. Will attempt to talk to her son and come up with the plan and possibly discharge to rehab. (4) Dementia Is this a current diagnosis for this admission?: Yes Plan: Patient reportedly living independently but clearly requiring 100% care of IADLs. Plan is to DC patient to rehab. Continue supportive measures, fall, aspiration, seizure precautions. (5) Hyperkalemia Is this a current diagnosis for this admission?: Yes Plan: Resolved. Likely multifactorial secondary to acute kidney injury and constipation. BMP tomorrow. (6) DDD (degenerative disc disease), lumbar Is this a current diagnosis for this admission?: No Plan: Continue supportive measures. Continue PT. Plan is to DC to rehab. (7) Muscle weakness (generalized) Is this a current diagnosis for this admission?: Yes Plan: Improving. Could be related to JEVON and rhabdomyolysis. TSH 0.9. Continue PT.
[2019-04-05] MEDS: NORMAL SALINE 1000 ML 1,000 ML IV PRN ×2 (01:33→10:13)
[2019-04-05] MEDS: ACETAMINOPHEN 325 MG TABLET PO PRN (04:37)
[2019-04-05] MEDS: HEPARIN SOD (PORCINE) 5,000 UNIT/ML 1 ML SYRINGE SUBCUT SCH ×3 (06:12→22:33)
[2019-04-05 06:33] LABS: ANION GAP 6 (5-19); BLOOD UREA NITROGEN 18 mg/dL (7-20); CARBON DIOXIDE 24 mmol/L (22-30); CHLORIDE 114 mmol/L (98-107); POTASSIUM 4.4 mmol/L (3.6-5.0); SODIUM 143.9 mmol/L (137-145)
[2019-04-05 06:56] LABS: GLUCOSE 66 mg/dL (75-110)
[2019-04-05] MEDS ORDERED: ALBUTEROL SULFATE HFA (90 MCG/PUFF) 200 PUFF/8.5 GM MDI IH PRN (09:04)
[2019-04-05] MEDS ORDERED: CARVEDILOL 12.5 MG TABLET ONE (09:57)
[2019-04-05] MEDS ORDERED: SERTRALINE HCL 50 MG TABLET ONE (09:57)
[2019-04-05] MEDS ORDERED: LISINOPRIL 10 MG TABLET ONE (09:57)
[2019-04-05] MEDS ORDERED: (PENDING PHARMACY ID) (Fluticasone/Salmeterol 1 INH) IH SCH (10:00)
[2019-04-05] MEDS: SERTRALINE HCL 50 MG TABLET PO SCH ×2 (10:14→19:00)
[2019-04-05] MEDS: LISINOPRIL 10 MG TABLET PO SCH ×2 (10:14→19:00)
[2019-04-05] MEDS: LACTULOSE SYRUP 20 GM/30 ML UDCUP PO SCH ×2 (10:15→19:00)
[2019-04-05] MEDS: CARVEDILOL 12.5 MG TABLET PO SCH ×3 (10:15→22:33)
[2019-04-05] MEDS: FLUTICASONE/VILANTEROL 200-25 MCG/DOSE IH SCH (13:01)
--- NOTE | 2019-04-05 13:14 | PDOC PROGRESS REPORT ---
Subjective Progress Note for:: 04/05/19 Subjective:: MIGUEL ANGEL MISHRA is a 83 year old female with a past medical history of morbid obesity, chronic constipation, generalized debility and dementia. She is a poor historian and subsequently history is obtained from the record. She presents with her son who is no longer available after sustaining multiple falls and worsening generalized weakness. Patient was found unable to get up from the toilet for several hours and brought to the emergency room for evaluation. She denies pain but is otherwise a poor historian only able to defer to her son who is unavailable. In the emergency department she is found to have hyperkalemia without peak T waves and acute renal failure. She is referred to the hospitalist for admission. Medication reconciliation is unavailable 04/04/2019. No acute events overnight. On my examination patient is alert awake and cooperative with physical examination. Planing of generalized fatigue. Denies any fever, chills, nausea, vomiting, diarrhea, constipation or any urinary symptoms. 04/05/2019. No acute events overnight. Patient is stating that she is feeling better. Pleasant and cooperative physical examination. Alert and oriented in no apparent distress. Denies any fever, chills, nausea, vomiting, diarrhea, constipation or any other symptoms. Plan is to DC to rehab however patient is not very open to the idea. Will discuss with son who lives with her. Reason For Visit: ARF,HYPERKALEMIA,MORBID OBESITY,DEMENTIA Physical Exam Vital Signs: Temp Pulse Resp BP Pulse Ox 98.4 F 64 19 124/40 L 92 04/05/19 12:00 04/05/19 12:00 04/05/19 12:00 04/05/19 08:00 04/05/19 12:00 Intake & Output 04/04/19 04/05/19 04/06/19 06:59 06:59 06:59 Intake Total 4720 2800 1120 Output Total 1900 1810 Balance 2820 990 1120 Weight 123.6 kg 123.7 kg General appearance: PRESENT: morbidly obese Head exam: PRESENT: atraumatic, normocephalic Respiratory exam: PRESENT: clear to auscultation sheree. ABSENT: rales, rhonchi, wheezes Cardiovascular exam: PRESENT: RRR. ABSENT: diastolic murmur, rubs, systolic m urmur GI/Abdominal exam: PRESENT: normal bowel sounds, soft. ABSENT: distended, guarding, mass, organolmegaly, rebound, tenderness Extremities exam: PRESENT: full ROM. ABSENT: calf tenderness, clubbing, pedal edema Neurological exam: PRESENT: alert, altered, awake, oriented to person, CN II-XII grossly intact Results Laboratory Results: 04/04/19 04:40 04/05/19 05:03 04/05/19 05:03 Sodium 143.9 Potassium 4.4 Chloride 114 H Carbon Dioxide 24 Anion Gap 6 BUN 18 Creatinine 1.52 H Est GFR ( Amer) 40 L Est GFR (Non-Af Amer) 33 L Glucose 66 L Calcium 10.0 04/03/19 04/03/19 04/03/19 03:36 03:36 07:15 Creatine Kinase Cancelled 809 H Troponin I Cancelled 04/03/19 07:15 Creatine Kinase Troponin I < 0.012 Impressions: Renal Ultrasound 04/03/19 00:00 IMPRESSION: Normal renal sonogram. Chest X-Ray 04/03/19 02:00 IMPRESSION: No acute cardiopulmonary abnormality copyright 2011 [employer]- All Rights Reserved Cervical Spine CT 04/03/19 02:01 IMPRESSION: No acute fracture or subluxation. TECHNICAL DOCUMENTATION: Quality ID # 436: Final reports with documentation of one or more dose reduction techniques (e.g., Automated exposure control, adjustment of the mA and/or kV according to patient size, use of iterative reconstruction technique) copyright 2011 [employer] All Rights Reserved Knee X-Ray 04/03/19 02:01 IMPRESSION: No acute fracture or dislocation copyright 2011 [employer] All Rights Reserved Assessment and Plan - Diagnosis (1) Rhabdomyolysis Qualifiers: Rhabdomyolysis type: traumatic Encounter type: initial encounter Qualified Code(s): T79.6XXA - Traumatic ischemia of muscle, initial encounter Is this a current diagnosis for this admission?: Yes Plan: Due to multiple falls. CK 809, creatinine 4.11 on admission. Creatinine 1.52 down from 4.11 on admission. Continue IV fluids guided by volume status. Kidnye function improving significantly. CK and BMP tomorrow. (2) Acute renal failure Is this a current diagnosis for this admission?: Yes Plan: Likely due to rhabdomyolysis and dehydration. Patient is stating that she is not drinking too much because she does not want to be running to the restroom. Improving. Normal renal ultrasound. Manager Floor 1.52 down from 4.11 on admission. Electrolytes and volume status. Continue IV fluids guided by volume status. CMP tomorrow. (3) Physical deconditioning Is this a current diagnosis for this admission?: Yes Plan: PT/OT consulted. Recommending rehab. Physical deconditioning may be a contributing factor to her recurrent falls and JEVON. Plan is to transfer patient to rehab however patient is not open to the idea stating that she has things to do before going to rehab. She live a son who is living with her which is not available in the room. Will attempt to talk to her son and come up with the plan and possibly discharge to rehab. (4) Dementia Is this a current diagnosis for this admission?: Yes Plan: Patient reportedly living independently but clearly requiring 100% care of IADLs. Plan is to DC patient to rehab. Continue supportive measures, fall, aspiration, seizure precautions. (5) Hyperkalemia Is this a current diagnosis for this admission?: Yes Plan: Resolved. Likely multifactorial secondary to acute kidney injury and constipation. BMP tomorrow. (6) DDD (degenerative disc disease), lumbar Is this a current diagnosis for this admission?: No Plan: Continue supportive measures. Continue PT. Plan is to DC to rehab. (7) Muscle weakness (generalized) Is this a current diagnosis for this admission?: Yes Plan: Improving. Could be related to JEVON and rhabdomyolysis. TSH 0.9. Continue PT. (8) Hypertension Is this a current diagnosis for this admission?: No Plan: Normotensive. Restart home meds. Adjust meds as needed. (9) Depression Is this a current diagnosis for this admission?: No Plan: Denies any suicidal/homicidal ideation. Restart home meds. Outpatient PCP follow-up. (10) Hyperlipidemia Is this a current diagnosis for this admission?: No Plan: Restart home meds.
[2019-04-05] MEDS ORDERED: HALOPERIDOL LACTATE INJ 5 MG/1 ML VIAL ONE (18:35)
[2019-04-05] MEDS ORDERED: HALOPERIDOL LACTATE INJ 5 MG/1 ML VIAL IM PRN (19:00)
[2019-04-05] MEDS ORDERED: HALOPERIDOL LACTATE INJ 5 MG/1 ML VIAL IM ONE (19:00)
[2019-04-05] MEDS: ATORVASTATIN CALCIUM 20 MG TABLET PO SCH (22:33)
[2019-04-06] MEDS: ACETAMINOPHEN 325 MG TABLET PO PRN ×2 (00:08→12:16)
[2019-04-06 05:49] LABS: ANION GAP 7 (5-19); BLOOD UREA NITROGEN 14 mg/dL (7-20); CALCIUM 10.1 mg/dL (8.4-10.2); CARBON DIOXIDE 23 mmol/L (22-30); CHLORIDE 115 mmol/L (98-107); CREATINE KINASE 229 U/L (30-135); POTASSIUM 4.4 mmol/L (3.6-5.0); SODIUM 144.5 mmol/L (137-145)
[2019-04-06 05:56] LABS: GLUCOSE 69 mg/dL (75-110)
[2019-04-06] MEDS: HEPARIN SOD (PORCINE) 5,000 UNIT/ML 1 ML SYRINGE SUBCUT SCH ×3 (06:13→21:11)
[2019-04-06] MEDS ORDERED: HALOPERIDOL LACTATE INJ 5 MG/1 ML VIAL IM PRN (08:09)
[2019-04-06] MEDS: ERGOCALCIFEROL (VITAMIN D2) 50000 UNIT (1.25 MG) CAPSULE PO SCH (09:50)
[2019-04-06] MEDS: SERTRALINE HCL 50 MG TABLET PO SCH (09:50)
[2019-04-06] MEDS: LISINOPRIL 10 MG TABLET PO SCH (09:50)
[2019-04-06] MEDS: CARVEDILOL 12.5 MG TABLET PO SCH ×2 (09:50→21:15)
[2019-04-06] MEDS: LACTULOSE SYRUP 20 GM/30 ML UDCUP PO SCH (09:54)
--- NOTE | 2019-04-06 11:51 | PDOC PROGRESS REPORT ---
Subjective Progress Note for:: 04/06/19 Subjective:: MIGUEL ANGEL MISHRA is a 83 year old female with a past medical history of morbid obesity, chronic constipation, generalized debility and dementia. She is a poor historian and subsequently history is obtained from the record. She presents with her son who is no longer available after sustaining multiple falls and worsening generalized weakness. Patient was found unable to get up from the toilet for several hours and brought to the emergency room for evaluation. She denies pain but is otherwise a poor historian only able to defer to her son who is unavailable. In the emergency department she is found to have hyperkalemia without peak T waves and acute renal failure. She is referred to the hospitalist for admission. Medication reconciliation is unavailable 04/04/2019. No acute events overnight. On my examination patient is alert awake and cooperative with physical examination. Planing of generalized fatigue. Denies any fever, chills, nausea, vomiting, diarrhea, constipation or any urinary symptoms. 04/05/2019. No acute events overnight. Patient is stating that she is feeling better. Pleasant and cooperative physical examination. Alert and oriented in no apparent distress. Denies any fever, chills, nausea, vomiting, diarrhea, constipation or any other symptoms. Plan is to DC to rehab however patient is not very open to the idea. Will discuss with son who lives with her. 04/06/2019. Yesterday patient was agitated, had to be started on one-to-one, and scratched the nursing staff, patient was started on PRN Haldol with good results, overnight she has been awake and rested however not agitated. My conversation she is pleasant and cooperative with physical examination, patient is alert oriented x2, I have not been able to talk to the family, but as per primary nurse report she has a daughter who was here yesterday and was kicked ou t by the patient, stated that patient is not safe to be discharged home, to prefer her to be sent to rehab. Patient states that she does not want to go to rehab and wants to be sent home. Has any fever, chills, nausea, vomiting, diarrhea, constipation or any urinary symptoms. Reason For Visit: ARF,HYPERKALEMIA,MORBID OBESITY,DEMENTIA Physical Exam Vital Signs: Temp Pulse Resp BP Pulse Ox 97.8 F 63 18 100/83 96 04/06/19 08:00 04/06/19 09:21 04/06/19 09:21 04/06/19 08:00 04/06/19 09:21 Intake & Output 04/05/19 04/06/19 04/07/19 06:59 06:59 06:59 Intake Total 2800 2340 Output Total 1810 650 Balance 990 1690 Weight 123.7 kg 123.7 kg Results Laboratory Results: 04/04/19 04:40 04/06/19 04:34 04/06/19 04:34 Sodium 144.5 Potassium 4.4 Chloride 115 H Carbon Dioxide 23 Anion Gap 7 BUN 14 Creatinine 1.22 Est GFR ( Amer) 51 L Est GFR (Non-Af Amer) 42 L Glucose 69 L Calcium 10.1 04/03/19 04/03/19 04/03/19 03:36 03:36 07:15 Creatine Kinase Cancelled 809 H Troponin I Cancelled 04/03/19 04/06/19 07:15 04:34 Creatine Kinase 229 H Troponin I < 0.012 Impressions: Renal Ultrasound 04/03/19 00:00 IMPRESSION: Normal renal sonogram. Chest X-Ray 04/03/19 02:00 IMPRESSION: No acute cardiopulmonary abnormality copyright 2011 [employer]- All Rights Reserved Cervical Spine CT 04/03/19 02:01 IMPRESSION: No acute fracture or subluxation. TECHNICAL DOCUMENTATION: Quality ID # 436: Final reports with documentation of one or more dose reduction techniques (e.g., Automated exposure control, adjustment of the mA and/or kV according to patient size, use of iterative reconstruction technique) copyright 2011 [employer]- All Rights Reserved Knee X-Ray 04/03/19 02:01 IMPRESSION: No acute fracture or dislocation copyright 2010 [employer] All Rights Reserved Assessment and Plan - Diagnosis (1) Agitation Is this a current diagnosis for this admission?: Yes Plan: Likely sundowning or worsening dementia. Patient afebrile, CBC CMP within normal limits, no sign of infection. Continue PRN Haldol. Start Seroquel nightly if sufficiently controlled her agitation will DC PRN Haldol. (2) Rhabdomyolysis Qualifiers: Rhabdomyolysis type: traumatic Encounter type: initial encounter Qualified Code(s): T79.6XXA - Traumatic ischemia of muscle, initial encounter Is this a current diagnosis for this admission?: Yes Plan: Due to multiple falls. CK 229, creatinine 4.11 on admission. Creatinine 1.22 down from 4.11 on admission. Continue IV fluids guided by volume status. Kidnye function improving significantly. CK and BMP tomorrow. (3) Acute renal failure Is this a current diagnosis for this admission?: Yes Plan: Resolved. Likely due to rhabdomyolysis and dehydration. Patient is stating that she is not drinking too much because she does not want to be running to the restroom. Normal renal ultrasound. 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 Electrolytes and volume status. Continue IV fluids guided by volume status. CMP tomorrow. (4) Physical deconditioning Is this a current diagnosis for this admission?: Yes Plan: PT/OT consulted. Recommending rehab. Physical deconditioning may be a contributing factor to her recurrent falls and JEVON. Plan is to transfer patient to rehab however patient is not open to the idea stating that she has things to do before going to rehab. She live a son who is living with her which is not available in the room. Will attempt to talk to her son and come up with the plan and possibly discharge to rehab. Discharge planning has been consulted for possible rehab placement. (5) Dementia Is this a current diagnosis for this admission?: Yes Plan: Patient reportedly living independently but clearly requiring 100% care of IADLs. Plan is to DC patient to rehab. Continue supportive measures, fall, aspiration, seizure precautions. (6) Hyperkalemia Is this a current diagnosis for this admission?: Yes Plan: Resolved. Likely multifactorial secondary to acute kidney injury and constipation. BMP tomorrow. (7) DDD (degenerative disc disease), lumbar Is this a current diagnosis for this admission?: No Plan: Continue supportive measures. Continue PT. Plan is to DC to rehab. (8) Muscle weakness (generalized) Is this a current diagnosis for this admission?: Yes Plan: Resolved. Could be related to JEVON and rhabdomyolysis. TSH 0.9. Continue PT. (9) Hypertension Is this a current diagnosis for this admission?: No Plan: Normotensive. Restart home meds. Adjust meds as needed. (10) Depression Is this a current diagnosis for this admission?: No Plan: Denies any suicidal/homicidal ideation. Restart home meds. Outpatient PCP follow-up. (11) Hyperlipidemia Is this a current diagnosis for this admission?: No Plan: Restart home meds.
[2019-04-06] MEDS: NORMAL SALINE 1000 ML 1,000 ML IV PRN ×2 (12:19→22:35)
[2019-04-06] MEDS: FLUTICASONE/VILANTEROL 200-25 MCG/DOSE IH SCH (12:34)
[2019-04-06] MEDS: QUETIAPINE FUMARATE 100 MG TABLET PO SCH (21:15)
[2019-04-06] MEDS: ATORVASTATIN CALCIUM 20 MG TABLET PO SCH (21:16)
[2019-04-07] MEDS: HEPARIN SOD (PORCINE) 5,000 UNIT/ML 1 ML SYRINGE SUBCUT SCH ×3 (05:52→21:30)
[2019-04-07] MEDS: NORMAL SALINE 1000 ML 1,000 ML IV PRN ×3 (06:39→21:33)
--- NOTE | 2019-04-07 09:34 | PDOC PROGRESS REPORT ---
Subjective Progress Note for:: 04/07/19 Subjective:: 83 year old female with a past medical history of morbid obesity, chronic constipation, generalized debility and dementia. She is a poor historian and subsequently history is obtained from the record. She presents with her son who is no longer available after sustaining multiple falls and worsening generalized weakness. Patient was found unable to get up from the toilet for several hours and brought to the emergency room for evaluation. She denies pain but is otherwise a poor historian only able to defer to her son who is unavailable. In the emergency department she is found to have hyperkalemia without peak T waves and acute renal failure. She is referred to the hospitalist for admission. Medication reconciliation is unavailable 04/04/2019. No acute events overnight. On my examination patient is alert awake and cooperative with physical examination. Planing of generalized fatigue. Denies any fever, chills, nausea, vomiting, diarrhea, constipation or any urinary symptoms. 04/05/2019. No acute events overnight. Patient is stating that she is feeling better. Pleasant and cooperative physical examination. Alert and oriented in no apparent distress. Denies any fever, chills, nausea, vomiting, diarrhea, constipation or any other symptoms. Plan is to DC to rehab however patient is not very open to the idea. Will discuss with son who lives with her. 04/06/2019. Yesterday patient was agitated, had to be started on one-to-one, and scratched the nursing staff, patient was started on PRN Haldol with good results, overnight she has been awake and rested however not agitated. My conversation she is pleasant and cooperative with physical examination, patient is alert oriented x2, I have not been able to talk to the family, but as per primary nurse report she has a daughter who was here yesterday and was kicked out by the patient, stated that patient is not safe to be discharged home, to prefer her to be sent to rehab. Patient states that she does not want to go to rehab and wants to be sent home. Has any fever, chills, nausea, vomiting, diarrhea, constipation or any urinary symptoms. 04/07/2019-patient is comfortably in the bed communicating okay. Patient states he does not have any appetite do not like to eat breakfast this morning. Denies any other problems. She is waiting for placement. No acute events in the last 24 hours. Patient is afebrile. Reason For Visit: ARF,HYPERKALEMIA,MORBID OBESITY,DEMENTIA Physical Exam Vital Signs: Temp Pulse Resp BP Pulse Ox 98.0 F 64 19 141/61 H 99 04/07/19 07:58 04/07/19 07:58 04/07/19 07:58 04/07/19 07:58 04/07/19 07:58 Intake & Output 04/06/19 04/07/19 04/08/19 06:59 06:59 06:59 Intake Total 2340 2340 Output Total 650 Balance 1690 2340 Weight 123.7 kg 123.7 kg General appearance: PRESENT: no acute distress, obese Head exam: PRESENT: atraumatic Eye exam: PRESENT: PERRLA Mouth exam: PRESENT: moist, tongue midline Neck exam: ABSENT: carotid bruit, JVD, lymphadenopathy, thyromegaly Respiratory exam: PRESENT: clear to auscultation sheree. ABSENT: rales, rhonchi, wheezes Cardiovascular exam: PRESENT: RRR. ABSENT: diastolic murmur, rubs, systolic murmur GI/Abdominal exam: PRESENT: normal bowel sounds, soft. ABSENT: distended, guarding, mass, organolmegaly, rebound, tenderness Rectal exam: PRESENT: deferred Extremities exam: PRESENT: full ROM. ABSENT: calf tenderness, clubbing, pedal edema Neurological exam: PRESENT: alert, awake, oriented to person, oriented to place, oriented to time, oriented to situation, CN II-XII grossly intact. ABSENT: motor sensory deficit Psychiatric exam: PRESENT: appropriate affect, normal mood. ABSENT: homicidal ideation, suicidal ideation Skin exam: PRESENT: dry, intact, warm. ABSENT: cyanosis, rash Results Laboratory Results: 04/04/19 04:40 04/06/19 04:34 04/03/19 04/03/19 04/03/19 03:36 03:36 07:15 Creatine Kinase Cancelled 809 H Troponin I Cancelled 04/03/19 04/06/19 07:15 04:34 Creatine Kinase 229 H Troponin I < 0.012 Impressions: Renal Ultrasound 04/03/19 00:00 IMPRESSION: Normal renal sonogram. Chest X-Ray 04/03/19 02:00 IMPRESSION: No acute cardiopulmonary abnormality copyright 2011 [employer]- All Rights Reserved Cervical Spine CT 04/03/19 02:01 IMPRESSION: No acute fracture or subluxation. TECHNICAL DOCUMENTATION: Quality ID # 436: Final reports with documentation of one or more dose reduction techniques (e.g., Automated exposure control, adjustment of the mA and/or kV according to patient size, use of iterative reconstruction technique) copyright 2010 [employer]- All Rights Reserved Knee X-Ray 04/03/19 02:01 IMPRESSION: No acute fracture or dislocation copyright 2010 [employer]- All Rights Reserved Assessment and Plan - Diagnosis (1) Acute renal failure Is this a current diagnosis for this admission?: Yes Plan: Resolved. Likely due to rhabdomyolysis and dehydration. Patient is stating that she is not drinking too much because she does not want to be running to the restroom. Normal renal ultrasound. 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 Electrolytes and volume status. Continue IV fluids guided by volume status. CMP tomorrow. 04/07/2019-this elderly female admitted with acute renal failure today's creatinine is 1.22. On admission it is 4.11. Recently on IV fluids at 125 cc/h plan is to decrease the fluids to 50 cc/h from today. Latest serum sodium is 144 and serum potassium is 4.4 stable. Patient's baseline creatinine is be tween 0.8-1.0. Urine output is 650 mL yesterday. (2) Agitation Is this a current diagnosis for this admission?: Yes Plan: Likely sundowning or worsening dementia. Patient afebrile, CBC CMP within normal limits, no sign of infection. Continue PRN Haldol. Start Seroquel nightly if sufficiently controlled her agitation will DC PRN Haldol. 04/07/2019-patient was calm and comfortably in the bed communicating well. Yesterday's agitation may be secondary to sundowning or worsening dementia. Presently on Seroquel at bedtime. (3) Rhabdomyolysis Qualifiers: Rhabdomyolysis type: traumatic Encounter type: initial encounter Qualified Code(s): T79.6XXA - Traumatic ischemia of muscle, initial encounter Is this a current diagnosis for this admission?: Yes Plan: Due to multiple falls. CK 229, creatinine 4.11 on admission. Creatinine 1.22 down from 4.11 on admission. Continue IV fluids guided by volume status. Kidnye function improving significantly. CK and BMP tomorrow. 04/07/2019-rhabdomyolysis most likely secondary to multiple falls. Latest CPK is 229. Is improved from 809 on 04/03/2019. (4) Physical deconditioning Is this a current diagnosis for this admission?: Yes Plan: PT/OT consulted. Recommending rehab. Physical deconditioning may be a contributing factor to her recurrent falls and JEVON. Plan is to transfer patient to rehab however patient is not open to the idea stating that she has things to do before going to rehab. She live a son who is living with her which is not available in the room. Will attempt to talk to her son and come up with the plan and possibly discharge to rehab. Discharge planning has been consulted for possible rehab placement. 04/07/2019-patient is waiting for rehab Placement. Equal deconditioning most likely secondary to poor oral intake and JEVON associated with frequent falls and rhabdomyolysis. (5) Hyperkalemia Is this a current diagnosis for this admission?: Yes Plan: Resolved. Likely multifactorial secondary to acute kidney injury and constipation. BMP tomorrow. 04/07/2019-hyperkalemia most likely secondary to acute kidney injury latest potassium is 4.4 hyperkalemia is resolved. (6) Dementia Is this a current diagnosis for this admission?: Yes Plan: Patient reportedly living independently but clearly requiring 100% care of IADLs. Plan is to DC patient to rehab. Continue supportive measures, fall, aspiration, seizure precautions. 04/07/2019-patient has chronic dementia with a single episode source of agitation most likely secondary to sundowning. I think the benefits the patient if she goes to rehab. . (7) Obesity Is this a current diagnosis for this admission?: No Plan: 04/07/2019-patient BMI is more than 46. Dietary consult is going to be requested. Unable to provide dietary advice because of the underlying dementia. - Time Time Spent with patient: 15-24 minutes Medications reviewed and adjusted accordingly: Yes Anticipated discharge: SNF
[2019-04-07] MEDS: CARVEDILOL 12.5 MG TABLET PO SCH ×2 (10:27→21:29)
[2019-04-07] MEDS: ACETAMINOPHEN 325 MG TABLET PO PRN ×2 (10:27→20:07)
[2019-04-07] MEDS: LISINOPRIL 10 MG TABLET PO SCH (10:28)
[2019-04-07] MEDS: SERTRALINE HCL 50 MG TABLET PO SCH (10:28)
[2019-04-07] MEDS: CETIRIZINE 10 MG TABLET PO SCH (10:28)
[2019-04-07] MEDS: LACTULOSE SYRUP 20 GM/30 ML UDCUP PO SCH (10:29)
[2019-04-07] MEDS: FLUTICASONE/VILANTEROL 200-25 MCG/DOSE IH SCH (10:30)
[2019-04-07] MEDS: RANOLAZINE 500 MG TAB.SR.12H PO SCH ×2 (10:33→21:29)
[2019-04-07] MEDS: ATORVASTATIN CALCIUM 20 MG TABLET PO SCH (21:29)
[2019-04-07] MEDS: QUETIAPINE FUMARATE 100 MG TABLET PO SCH (21:29)
[2019-04-08] MEDS: HEPARIN SOD (PORCINE) 5,000 UNIT/ML 1 ML SYRINGE SUBCUT SCH ×3 (05:11→22:02)
[2019-04-08] MEDS: RANOLAZINE 500 MG TAB.SR.12H PO SCH ×2 (10:00→22:03)
[2019-04-08] MEDS: CARVEDILOL 12.5 MG TABLET PO SCH ×2 (11:26→22:01)
[2019-04-08] MEDS: LISINOPRIL 10 MG TABLET PO SCH (11:27)
[2019-04-08] MEDS: CETIRIZINE 10 MG TABLET PO SCH (11:27)
[2019-04-08] MEDS: FLUTICASONE/VILANTEROL 200-25 MCG/DOSE IH SCH (11:27)
[2019-04-08] MEDS: LACTULOSE SYRUP 20 GM/30 ML UDCUP PO SCH (11:28)
[2019-04-08] MEDS: SERTRALINE HCL 50 MG TABLET PO SCH (15:45)
[2019-04-08] MEDS: ACETAMINOPHEN 325 MG TABLET PO PRN (16:59)
--- NOTE | 2019-04-08 17:52 | PDOC PROGRESS REPORT ---
Subjective Progress Note for:: 04/08/19 Subjective:: MIGUEL ANGEL MISHRA is a 83 year old female with a past medical history of morbid obesity, chronic constipation, generalized debility and dementia. She is a poor historian and subsequently history is obtained from the record. She presents with her son who is no longer available after sustaining multiple falls and worsening generalized weakness. Patient was found unable to get up from the toilet for several hours and brought to the emergency room for evaluation. She denies pain but is otherwise a poor historian only able to defer to her son who is unavailable. In the emergency department she is found to have hyperkalemia without peak T waves and acute renal failure. She is referred to the hospitalist for admission. Medication reconciliation is unavailable 04/04/2019. No acute events overnight. On my examination patient is alert awake and cooperative with physical examination. Planing of generalized fatigue. Denies any fever, chills, nausea, vomiting, diarrhea, constipation or any urinary symptoms. 04/05/2019. No acute events overnight. Patient is stating that she is feeling better. Pleasant and cooperative physical examination. Alert and oriented in no apparent distress. Denies any fever, chills, nausea, vomiting, diarrhea, constipation or any other symptoms. Plan is to DC to rehab however patient is not very open to the idea. Will discuss with son who lives with her. 04/06/2019. Yesterday patient was agitated, had to be started on one-to-one, and scratched the nursing staff, patient was started on PRN Haldol with good results, overnight she has been awake and rested however not agitated. My conversation she is pleasant and cooperative with physical examination, patient is alert oriented x2, I have not been able to talk to the family, but as per primary nurse report she has a daughter who was here yesterday and was kicked ou t by the patient, stated that patient is not safe to be discharged home, to prefer her to be sent to rehab. Patient states that she does not want to go to rehab and wants to be sent home. Has any fever, chills, nausea, vomiting, diarrhea, constipation or any urinary symptoms. 04/08/2019. No acute events overnight, patient refusing her meals and fluids. Stating she has no appetite. She is pending transfer however family does not want her to be transferred to [place]. Denies any fever, chills, nausea, vomiting, diarrhea, constipation or any urinary symptoms. Reason For Visit: ARF,HYPERKALEMIA,MORBID OBESITY,DEMENTIA Physical Exam Vital Signs: Temp Pulse Resp BP Pulse Ox 98.7 F 57 L 16 175/64 H 97 04/08/19 16:17 04/08/19 16:17 04/08/19 16:17 04/08/19 16:17 04/08/19 16:17 Intake & Output 04/07/19 04/08/19 04/09/19 06:59 06:59 06:59 Intake Total 2340 794 Output Total 50 Balance 2340 744 Weight 123.7 kg 124.7 kg General appearance: PRESENT: obese Head exam: PRESENT: atraumatic, normocephalic Respiratory exam: PRESENT: clear to auscultation sheree. ABSENT: rales, rhonchi, wheezes Cardiovascular exam: PRESENT: RRR. ABSENT: diastolic murmur, rubs, systolic murmur GI/Abdominal exam: PRESENT: normal bowel sounds, soft. ABSENT: distended, guarding, mass, organolmegaly, rebound, tenderness Extremities exam: PRESENT: full ROM. ABSENT: calf tenderness, clubbing, pedal edema Neurological exam: PRESENT: alert, awake, oriented to person, CN II-XII grossly intact. ABSENT: motor sensory deficit Results Laboratory Results: 04/04/19 04:40 04/06/19 04:34 04/03/19 07:45 Blood Blood Culture - Final NO GROWTH IN 5 DAYS 04/03/19 07:15 Blood Blood Culture - Final NO GROWTH IN 5 DAYS 04/03/19 04/03/19 04/03/19 03:36 03:36 07:15 Creatine Kinase Cancelled 809 H Troponin I Cancelled 04/03/19 04/06/19 07:15 04:34 Creatine Kinase 229 H Troponin I < 0.012 Impressions: Renal Ultrasound 04/03/19 00:00 IMPRESSION: Normal renal sonogram. Chest X-Ray 04/03/19 02:00 IMPRESSION: No acute cardiopulmonary abnormality copyright 2011 [employer] All Rights Reserved Cervical Spine CT 04/03/19 02:01 IMPRESSION: No acute fracture or subluxation. TECHNICAL DOCUMENTATION: Quality ID # 436: Final reports with documentation of one or more dose reduction techniques (e.g., Automated exposure control, adjustment of the mA and/or kV according to patient size, use of iterative reconstruction technique) copyright 2010 [employer] All Rights Reserved Knee X-Ray 04/03/19 02:01 IMPRESSION: No acute fracture or dislocation copyright 2010 [employer] All Rights Reserved Assessment and Plan - Diagnosis (1) Hypoglycemia Is this a current diagnosis for this admission?: Yes Plan: Patient has been refusing her meals and fluids. Start on the D5W NS. Continue Accu-Chek, frequent snacking, hypoglycemia protocol. (2) Anorexia Is this a current diagnosis for this admission?: Yes Plan: Started on Megace, encourage frequent snacking. Will follow-up. (3) Agitation Is this a current diagnosis for this admission?: Yes Plan: Improving. Likely sundowning or worsening dementia. Patient afebrile, CBC CMP within normal limits, no sign of infection. Continue PRN Haldol. Start Seroquel nightly if sufficiently controlled her agitation will DC PRN Haldol. (4) Rhabdomyolysis Qualifiers: Rhabdomyolysis type: traumatic Encounter type: initial encounter Qualified Code(s): T79.6XXA - Traumatic ischemia of muscle, initial encounter Is this a current diagnosis for this admission?: Yes Plan: Due to multiple falls. CK 229, creatinine 4.11 on admission. Creatinine 1.22 down from 4.11 on admission. Continue IV fluids guided by volume status. Kidnye function improving significantly. CK and BMP tomorrow. (5) Acute renal failure Is this a current diagnosis for this admission?: Yes Plan: Resolved. Likely due to rhabdomyolysis and dehydration. Patient is stating that she is not drinking too much because she does not want to be running to the restroom. Normal renal ultrasound. 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 Electrolytes and volume status. Continue IV fluids guided by volume status. CMP tomorrow. (6) Physical deconditioning Is this a current diagnosis for this admission?: Yes Plan: PT/OT consulted. Recommending rehab. Pending transfer to rehab. Physical deconditioning may be a contributing factor to her recurrent falls and JEVON. Plan is to transfer patient to rehab however patient is not open to the idea stating that she has things to do before going to rehab. She live a son who is living with her which is not available in the room. Will attempt to talk to her son and come up with the plan and possibly discharge to rehab. Discharge planning has been consulted for possible rehab placement. (7) Dementia Is this a current diagnosis for this admission?: Yes Plan: Patient reportedly living independently but clearly requiring 100% care of IADLs. MCV TSH within normal limits. Plan is to DC patient to rehab. Continue supportive measures, fall, aspiration, seizure precautions. (8) Hyperkalemia Is this a current diagnosis for this admission?: Yes Plan: Resolved. Likely multifactorial secondary to acute kidney injury and constipation. BMP tomorrow. (9) DDD (degenerative disc disease), lumbar Is this a current diagnosis for this admission?: No Plan: Continue supportive measures. Continue PT. Plan is to DC to rehab. (10) Muscle weakness (generalized) Is this a current diagnosis for this admission?: Yes Plan: Resolved. Could be related to JEVON and rhabdomyolysis. TSH 0.9. Continue PT. (11) Hypertension Is this a current diagnosis for this admission?: No Plan: Not controlled. Increase lisinopril to 20 mg p.o. daily. Continue amlodipine, carvedilol. Monitor vitals. Adjust meds as needed. (12) Depression Is this a current diagnosis for this admission?: No Plan: Denies any suicidal/homicidal ideation. Restart home meds. Outpatient PCP follow-up. (13) Hyperlipidemia Is this a current diagnosis for this admission?: No Plan: Restart home meds.
[2019-04-08] MEDS ORDERED: GLUCAGON,HUMAN RECOMB 1 MG INJ IM PRN (17:53)
[2019-04-08] MEDS ORDERED: DEXTROSE 40% GEL 15 GM TUBE PO PRN ×2 (17:53)
[2019-04-08] MEDS ORDERED: DEXTROSE 50%-WATER 25 GM/50 ML DISP.SYRIN IV PRN ×2 (17:53)
[2019-04-08] MEDS: MEGESTROL ACETATE SUSP 400 MG/10 ML UDCUP PO SCH (22:00)
[2019-04-08] MEDS: ATORVASTATIN CALCIUM 20 MG TABLET PO SCH (22:01)
[2019-04-08] MEDS: QUETIAPINE FUMARATE 100 MG TABLET PO SCH (22:01)
[2019-04-08] MEDS: DEXTROSE 5%-NORMAL SALINE 1,000 ML IV PRN (22:09)
[2019-04-09] MEDS: HEPARIN SOD (PORCINE) 5,000 UNIT/ML 1 ML SYRINGE SUBCUT SCH ×3 (05:15→21:15)
[2019-04-09 05:45] LABS: ABSOLUTE BASOPHILS # (AUTO) 0.1 10^3/uL (0.0-0.2); ABSOLUTE EOSINOPHILS # (AUTO) 0.1 10^3/uL (0.0-0.6); ABSOLUTE LYMPHOCYTES (AUTO) 1.9 10^3/uL (0.5-4.7); ABSOLUTE MONOCYTES (AUTO) 0.6 10^3/uL (0.1-1.4); ABSOLUTE NEUT (AUTO) 4.1 10^3/uL (1.7-8.2); EOSINOPHILS % (AUTO) 1.1 % (0-6); HEMATOCRIT 31.9 % (36.0-47.0); HEMOGLOBIN 10.6 g/dL (12.0-15.5); LYMPHOCYTES % (AUTO) 27.6 % (13-45); MEAN CORPUSCULAR HEMOGLOBIN 29.4 pg (27.0-33.4); MEAN CORPUSCULAR HGB CONC 33.2 g/dL (32.0-36.0); MEAN CORPUSCULAR VOLUME 89 fl (80-97); MONOCYTES % (AUTO) 9.4 % (3-13); PLATELET COUNT 206 10^3/uL (150-450); RED BLOOD COUNT 3.59 10^6/uL (3.72-5.28); RED CELL DISTRIBUTION WIDTH 14.5 % (11.5-14.0); SEGMENTED NEUTROPHILS % (AUTO) 60.9 % (42-78); TOTAL CELLS COUNTED % (AUTO) 100 %; WHITE BLOOD COUNT 6.8 10^3/uL (4.0-10.5)
[2019-04-09 06:06] LABS: ANION GAP 7 (5-19); BLOOD UREA NITROGEN 8 mg/dL (7-20); CALCIUM 9.8 mg/dL (8.4-10.2); CARBON DIOXIDE 21 mmol/L (22-30); CHLORIDE 113 mmol/L (98-107); GLUCOSE 91 mg/dL (75-110); SODIUM 141.4 mmol/L (137-145)
[2019-04-09] MEDS: CARVEDILOL 12.5 MG TABLET PO SCH ×2 (09:52→21:15)
[2019-04-09] MEDS: ACETAMINOPHEN 325 MG TABLET PO PRN ×2 (09:54→16:40)
[2019-04-09] MEDS: LISINOPRIL 10 MG TABLET PO SCH (09:55)
[2019-04-09] MEDS: FLUTICASONE/VILANTEROL 200-25 MCG/DOSE IH SCH (10:00)
[2019-04-09] MEDS: RANOLAZINE 500 MG TAB.SR.12H PO SCH ×2 (10:00→21:15)
[2019-04-09] MEDS: MULTIVITAMINS W-IRON TABLET, CHEWABLE PO SCH ×2 (10:00→10:02)
[2019-04-09] MEDS: CETIRIZINE 10 MG TABLET PO SCH (10:01)
[2019-04-09] MEDS: SERTRALINE HCL 50 MG TABLET PO SCH (10:01)
[2019-04-09] MEDS: LACTULOSE SYRUP 20 GM/30 ML UDCUP PO SCH (11:17)
[2019-04-09] MEDS: MEGESTROL ACETATE SUSP 400 MG/10 ML UDCUP PO SCH ×2 (11:18→21:17)
--- NOTE | 2019-04-09 14:52 | PDOC PROGRESS REPORT ---
Subjective Progress Note for:: 04/09/19 Subjective:: MIGUEL ANGEL MISHRA is a 83 year old female with a past medical history of morbid obesity, chronic constipation, generalized debility and dementia. She is a poor historian and subsequently history is obtained from the record. She presents with her son who is no longer available after sustaining multiple falls and worsening generalized weakness. Patient was found unable to get up from the toilet for several hours and brought to the emergency room for evaluation. She denies pain but is otherwise a poor historian only able to defer to her son who is unavailable. In the emergency department she is found to have hyperkalemia without peak T waves and acute renal failure. She is referred to the hospitalist for admission. Medication reconciliation is unavailable 04/04/2019. No acute events overnight. On my examination patient is alert awake and cooperative with physical examination. Planing of generalized fatigue. Denies any fever, chills, nausea, vomiting, diarrhea, constipation or any urinary symptoms. 04/05/2019. No acute events overnight. Patient is stating that she is feeling better. Pleasant and cooperative physical examination. Alert and oriented in no apparent distress. Denies any fever, chills, nausea, vomiting, diarrhea, constipation or any other symptoms. Plan is to DC to rehab however patient is not very open to the idea. Will discuss with son who lives with her. 04/06/2019. Yesterday patient was agitated, had to be started on one-to-one, and scratched the nursing staff, patient was started on PRN Haldol with good results, overnight she has been awake and rested however not agitated. My conversation she is pleasant and cooperative with physical examination, patient is alert oriented x2, I have not been able to talk to the family, but as per primary nurse report she has a daughter who was here yesterday and was kicked ou t by the patient, stated that patient is not safe to be discharged home, to prefer her to be sent to rehab. Patient states that she does not want to go to rehab and wants to be sent home. Has any fever, chills, nausea, vomiting, diarrhea, constipation or any urinary symptoms. 04/08/2019. No acute events overnight, patient refusing her meals and fluids. Stating she has no appetite. She is pending transfer however family does not want her to be transferred to [place]. Denies any fever, chills, nausea, vomiting, diarrhea, constipation or any urinary symptoms. 04/09/2019. No acute events overnight, patient is still refusing most of her p.o. intake, hypoglycemia has improved since being started on D5 NS, nutrition has been consulted and recommendation has been noted. Patient is pending placement. Denies any fever, chills, nausea, vomiting, diarrhea, constipation or any urinary symptoms. Reason For Visit: ARF,HYPERKALEMIA,MORBID OBESITY,DEMENTIA Physical Exam Vital Signs: Temp Pulse Resp BP Pulse Ox 98.6 F 62 17 127/48 H 98 04/09/19 12:20 04/09/19 12:20 04/09/19 12:20 04/09/19 12:20 04/09/19 12:20 Intake & Output 04/08/19 04/09/19 04/10/19 06:59 06:59 06:59 Intake Total 794 1400 Output Total 50 1200 Balance 744 200 Weight 124.7 kg 124.7 kg General appearance: PRESENT: morbidly obese Head exam: PRESENT: atraumatic, normocephalic Respiratory exam: PRESENT: clear to auscultation sheree. ABSENT: rales, rhonchi, wheezes Cardiovascular exam: PRESENT: RRR. ABSENT: diastolic murmur, rubs, systolic murmur Pulses: PRESENT: normal dorsalis pedis pul GI/Abdominal exam: PRESENT: normal bowel sounds, soft. ABSENT: distended, guarding, mass, organolmegaly, rebound, tenderness Extremities exam: PRESENT: full ROM. ABSENT: calf tenderness, clubbing, pedal edema Neurological exam: PRESENT: alert, awake, oriented to person, oriented to time, CN II-XII grossly intact. ABSENT: motor sensory deficit Results Laboratory Results: 04/09/19 04:35 04/09/19 04:35 04/09/19 04/09/19 04:35 04:35 WBC 6.8 RBC 3.59 L Hgb 10.6 L Hct 31.9 L MCV 89 MCH 29.4 MCHC 33.2 RDW 14.5 H Plt Count 206 Seg Neutrophils % 60.9 Lymphocytes % 27.6 Monocytes % 9.4 Eosinophils % 1.1 Basophils % 1.0 Absolute Neutrophils 4.1 Absolute Lymphocytes 1.9 Absolute Monocytes 0.6 Absolute Eosinophils 0.1 Absolute Basophils 0.1 Sodium 141.4 Potassium 4.0 Chloride 113 H Carbon Dioxide 21 L Anion Gap 7 BUN 8 Creatinine 1.00 Est GFR ( Amer) > 60 Est GFR (Non-Af Amer) 53 L Glucose 91 Calcium 9.8 Magnesium 1.7 04/03/19 04/03/19 04/03/19 03:36 03:36 07:15 Creatine Kinase Cancelled 809 H Troponin I Cancelled 04/03/19 04/06/19 07:15 04:34 Creatine Kinase 229 H Troponin I < 0.012 Impressions: Renal Ultrasound 04/03/19 00:00 IMPRESSION: Normal renal sonogram. Chest X-Ray 04/03/19 02:00 IMPRESSION: No acute cardiopulmonary abnormality copyright 2010 [employer]- All Rights Reserved Cervical Spine CT 04/03/19 02:01 IMPRESSION: No acute fracture or subluxation. TECHNICAL DOCUMENTATION: Quality ID # 436: Final reports with documentation of one or more dose reduction techniques (e.g., Automated exposure control, adjustment of the mA and/or kV according to patient size, use of iterative reconstruction technique) copyright 2010 [employer]- All Rights Reserved Knee X-Ray 04/03/19 02:01 IMPRESSION: No acute fracture or dislocation copyright 2010 [employer]- All Rights Reserved Assessment and Plan - Diagnosis (1) Hypoglycemia Is this a current diagnosis for this admission?: Yes Plan: Patient has been refusing her meals and fluids. Improved since being started on the DW5 NS. Continue Accu-Chek, frequent snacking, hypoglycemia protocol. (2) Anorexia Is this a current diagnosis for this admission?: Yes Plan: Started on Megace, encourage frequent snacking. Will follow-up. (3) Agitation Is this a current diagnosis for this admission?: Yes Plan: Improving. Likely sundowning or worsening dementia. Patient afebrile, CBC CMP within normal limits, no sign of infection. Continue PRN Haldol. Start Seroquel nightly if sufficiently controlled her agitation will DC PRN Haldol. (4) Rhabdomyolysis Qualifiers: Rhabdomyolysis type: traumatic Encounter type: initial encounter Qualified Code(s): T79.6XXA - Traumatic ischemia of muscle, initial encounter Is this a current diagnosis for this admission?: Yes Plan: Due to multiple falls. CK 229, creatinine 4.11 on admission. Creatinine 1.0 down from 4.11 on admission. Continue IV fluids guided by volume status. Kidnye function improving significantly. CK and BMP tomorrow. (5) Acute renal failure Is this a current diagnosis for this admission?: Yes Plan: Resolved. Likely due to rhabdomyolysis and dehydration. Patient is stating that she is not drinking too much because she does not want to be running to the restroom. Normal renal ultrasound. [place] 1.52 down from 4.11 on admission. Electrolytes and volume status. Continue IV fluids guided by volume status. CMP tomorrow. (6) Physical deconditioning Is this a current diagnosis for this admission?: Yes Plan: PT/OT consulted. Recommending rehab. Pending transfer to rehab. Physical deconditioning may be a contributing factor to her recurrent falls and JEVON. Plan is to transfer patient to rehab however patient is not open to the idea stating that she has things to do before going to rehab. She live a son who is living with her which is not available in the room. Will attempt to talk to her son and come up with the plan and possibly discharge to rehab. Discharge planning has been consulted for possible rehab placement. (7) Dementia Is this a current diagnosis for this admission?: Yes Plan: Patient reportedly living independently but clearly requiring 100% care of IADLs. MCV TSH within normal limits. Plan is to DC patient to rehab. Continue supportive measures, fall, aspiration, seizure precautions. (8) Hyperkalemia Is this a current diagnosis for this admission?: Yes Plan: Resolved. K 4.0 Likely multifactorial secondary to acute kidney injury and constipation. BMP tomorrow. (9) DDD (degenerative disc disease), lumbar Is this a current diagnosis for this admission?: No Plan: Continue supportive measures. Continue PT. Plan is to DC to rehab. (10) Muscle weakness (generalized) Is this a current diagnosis for this admission?: Yes Plan: Resolved. Could be related to JEVON and rhabdomyolysis. TSH 0.9. Continue PT. (11) Hypertension Is this a current diagnosis for this admission?: No Plan: Controlled. Continue lisinopril 20 mg p.o. daily, ,amlodipine, carvedilol. Monitor vitals. Adjust meds as needed. (12) Depression Is this a current diagnosis for this admission?: No Plan: Denies any suicidal/homicidal ideation. Restart home meds. Outpatient PCP follow-up. (13) Hyperlipidemia Is this a current diagnosis for this admission?: No Plan: Restart home meds.
[2019-04-09] MEDS ORDERED: ONDANSETRON HCL INJ/PF 4 MG/2 ML SDV IV PRN (18:44)
[2019-04-09] MEDS: ATORVASTATIN CALCIUM 20 MG TABLET PO SCH (21:15)
[2019-04-09] MEDS: QUETIAPINE FUMARATE 100 MG TABLET PO SCH (21:15)
[2019-04-10] MEDS: HEPARIN SOD (PORCINE) 5,000 UNIT/ML 1 ML SYRINGE SUBCUT SCH ×3 (06:50→21:21)
[2019-04-10] MEDS: PANTOPRAZOLE SODIUM 40 MG VIAL IV SCH ×2 (09:59→21:18)
[2019-04-10] MEDS: CARVEDILOL 12.5 MG TABLET PO SCH ×2 (10:08→21:22)
[2019-04-10] MEDS: FLUTICASONE/VILANTEROL 200-25 MCG/DOSE IH SCH (10:08)
[2019-04-10] MEDS: SERTRALINE HCL 50 MG TABLET PO SCH (10:09)
[2019-04-10] MEDS: CETIRIZINE 10 MG TABLET PO SCH (10:09)
[2019-04-10] MEDS: MULTIVITAMINS W-IRON TABLET, CHEWABLE PO SCH (10:09)
[2019-04-10] MEDS: MEGESTROL ACETATE SUSP 400 MG/10 ML UDCUP PO SCH ×2 (10:09→17:42)
[2019-04-10] MEDS: RANOLAZINE 500 MG TAB.SR.12H PO SCH ×2 (10:09→21:23)
[2019-04-10] MEDS: LISINOPRIL 10 MG TABLET PO SCH (10:09)
[2019-04-10] MEDS: DEXTROSE 5%-NORMAL SALINE 1,000 ML IV PRN (11:36)
--- NOTE | 2019-04-10 13:56 | PDOC PROGRESS REPORT ---
Subjective Progress Note for:: 04/10/19 Subjective:: MIGUEL ANGEL MISHRA is a 83 year old female with a past medical history of morbid obesity, chronic constipation, generalized debility and dementia. She is a poor historian and subsequently history is obtained from the record. She presents with her son who is no longer available after sustaining multiple falls and worsening generalized weakness. Patient was found unable to get up from the toilet for several hours and brought to the emergency room for evaluation. She denies pain but is otherwise a poor historian only able to defer to her son who is unavailable. In the emergency department she is found to have hyperkalemia without peak T waves and acute renal failure. She is referred to the hospitalist for admission. Medication reconciliation is unavailable 04/04/2019. No acute events overnight. On my examination patient is alert awake and cooperative with physical examination. Planing of generalized fatigue. Denies any fever, chills, nausea, vomiting, diarrhea, constipation or any urinary symptoms. 04/05/2019. No acute events overnight. Patient is stating that she is feeling better. Pleasant and cooperative physical examination. Alert and oriented in no apparent distress. Denies any fever, chills, nausea, vomiting, diarrhea, constipation or any other symptoms. Plan is to DC to rehab however patient is not very open to the idea. Will discuss with son who lives with her. 04/06/2019. Yesterday patient was agitated, had to be started on one-to-one, and scratched the nursing staff, patient was started on PRN Haldol with good results, overnight she has been awake and rested however not agitated. My conversation she is pleasant and cooperative with physical examination, patient is alert oriented x2, I have not been able to talk to the family, but as per primary nurse report she has a daughter who was here yesterday and was kicked ou t by the patient, stated that patient is not safe to be discharged home, to prefer her to be sent to rehab. Patient states that she does not want to go to rehab and wants to be sent home. Has any fever, chills, nausea, vomiting, diarrhea, constipation or any urinary symptoms. 04/08/2019. No acute events overnight, patient refusing her meals and fluids. Stating she has no appetite. She is pending transfer however family does not want her to be transferred to [place]. Denies any fever, chills, nausea, vomiting, diarrhea, constipation or any urinary symptoms. 04/09/2019. No acute events overnight, patient is still refusing most of her p.o. intake, hypoglycemia has improved since being started on D5 NS, nutrition has been consulted and recommendation has been noted. Patient is pending placement. Denies any fever, chills, nausea, vomiting, diarrhea, constipation or any urinary symptoms. 04/10/2019. No acute events overnight, patient still refusing her p.o. intake, Accu-Cheks, most of her meds, on my encounter patient is resting comfortably however refuses my question to assess her current status. Patient refusing food stating it is afraid it will make her nauseous, when asked what type of which she like she states she prefers oranges and apples, when offered orange juice an d apple she states she is not hungry right now. Patient daughter who is visiting from [place] visited her today, and patient did have some food with her daughter's encouragement. Family has not made up their mind about patient's placement either going home or back to rehab. Patient denies any fever, chills, abdominal pain, diarrhea, constipation or any urinary symptoms. Reason For Visit: ARF,HYPERKALEMIA,MORBID OBESITY,DEMENTIA Physical Exam Vital Signs: Temp Pulse Resp BP Pulse Ox 98.5 F 63 16 154/54 H 99 04/10/19 07:35 04/10/19 07:35 04/10/19 07:35 04/10/19 07:35 04/10/19 07:35 Intake & Output 04/09/19 04/10/19 04/11/19 06:59 06:59 06:59 Intake Total 3814 945 2944 Output Total 1200 1000 Balance 200 -700 1000 Weight 124.7 kg 123.6 kg General appearance: PRESENT: no acute distress, morbidly obese Head exam: PRESENT: atraumatic, normocephalic Respiratory exam: PRESENT: clear to auscultation sheree. ABSENT: rales, rhonchi, wheezes Cardiovascular exam: PRESENT: RRR. ABSENT: diastolic murmur, rubs, systolic murmur Extremities exam: PRESENT: full ROM. ABSENT: calf tenderness, clubbing, pedal edema Neurological exam: PRESENT: alert, altered, awake, oriented to person, CN II-XII grossly intact, motor sensory deficit Results Laboratory Results: 04/09/19 04:35 04/09/19 04:35 04/03/19 04/03/19 04/03/19 03:36 03:36 07:15 Creatine Kinase Cancelled 809 H Troponin I Cancelled 04/03/19 04/06/19 07:15 04:34 Creatine Kinase 229 H Troponin I < 0.012 Impressions: Renal Ultrasound 04/03/19 00:00 IMPRESSION: Normal renal sonogram. Chest X-Ray 04/03/19 02:00 IMPRESSION: No acute cardiopulmonary abnormality copyright 2010 [employer]- All Rights Reserved Cervical Spine CT 04/03/19 02:01 IMPRESSION: No acute fracture or subluxation. TECHNICAL DOCUMENTATION: Quality ID # 436: Final reports with documentation of one or more dose reduction techniques (e.g., Automated exposure control, adjustment of the mA and/or kV according to patient size, use of iterative reconstruction technique) copyright 2010 [employer]- All Rights Reserved Knee X-Ray 04/03/19 02:01 IMPRESSION: No acute fracture or dislocation copyright 2010 [employer]- All Rights Reserved Assessment and Plan - Diagnosis (1) Hypoglycemia Is this a current diagnosis for this admission?: Yes Plan: Patient has been refusing her meals, fluids, Accu-Cheks are her meds. Hypoglycemia has improved since being started on the DW5 NS. Registered dietitian has been consulted and recommendations noted. Increase Megace to twice daily. She did eat her lunch after being encouraged by her daughter who visited her. Family has been encouraged to visit her more often to encouraged her to eat. Nursing staff has also been encouraged to offer her more snacks and provide her with food she prefers as long as her blood sugars are checked and addressed properly. Continue Accu-Chek, frequent snacking, hypoglycemia protocol. (2) Anorexia Is this a current diagnosis for this admission?: Yes Plan: Started on Megace, encourage frequent snacking. Will follow-up. (3) Agitation Is this a current diagnosis for this admission?: Yes Plan: Improving. Likely sundowning or worsening dementia. Patient afebrile, CBC CMP within normal limits, no sign of infection. Continue PRN Haldol. Start Seroquel nightly if sufficiently controlled her agitation will DC PRN Haldol. (4) Rhabdomyolysis Qualifiers: Rhabdomyolysis type: traumatic Encounter type: initial encounter Qualified Code(s): T79.6XXA - Traumatic ischemia of muscle, initial encounter Is this a current diagnosis for this admission?: Yes Plan: Resolved. Due to multiple falls. CK 229, creatinine 4.11 on admission. Creatinine 1.0 down from 4.11 on admission. Continue IV fluids guided by volume status. Kidnye function improving significantly. CK and BMP tomorrow. (5) Acute renal failure Is this a current diagnosis for this admission?: Yes Plan: Resolved. Likely due to rhabdomyolysis and dehydration. Patient is stating that she is not drinking too much because she does not want to be running to the restroom. Normal renal ultrasound. [employer] 1.52 down from 4.11 on admission. Electrolytes and volume status. Continue IV fluids guided by volume status. CMP tomorrow. (6) Physical deconditioning Is this a current diagnosis for this admission?: Yes Plan: PT/OT consulted. Recommending rehab. Pending transfer to rehab. Physical deconditioning may be a contributing factor to her recurrent falls and JEVON. Plan is to transfer patient to rehab however patient is not open to the idea stating that she has things to do before going to rehab. She live a son who is living with her which is not available in the room. Will attempt to talk to her son and come up with the plan and possibly discharge to rehab. Discharge planning has been consulted for possible rehab placement. (7) Dementia Is this a current diagnosis for this admission?: Yes Plan: Patient reportedly living independently but clearly requiring 100% care of IADLs. MCV TSH within normal limits. Plan is to DC patient to rehab. Continue supportive measures, fall, aspiration, seizure precautions. (8) Hyperkalemia Is this a current diagnosis for this admission?: Yes Plan: Resolved. K 4.0 Likely multifactorial secondary to acute kidney injury and constipation. BMP tomorrow. (9) DDD (degenerative disc disease), lumbar Is this a current diagnosis for this admission?: No Plan: Continue supportive measures. Continue PT. Plan is to DC to rehab. (10) Muscle weakness (generalized) Is this a current diagnosis for this admission?: Yes Plan: Resolved. Could be related to JEVON and rhabdomyolysis. TSH 0.9. Continue PT. (11) Hypertension Is this a current diagnosis for this admission?: No Plan: Controlled. Continue lisinopril 20 mg p.o. daily, ,amlodipine, carvedilol. Monitor vitals. Adjust meds as needed. (12) Depression Is this a current diagnosis for this admission?: No Plan: Denies any suicidal/homicidal ideation. Restart home meds. Outpatient PCP follow-up. (13) Hyperlipidemia Is this a current diagnosis for this admission?: No Plan: Restart home meds.
[2019-04-10] MEDS: ATORVASTATIN CALCIUM 20 MG TABLET PO SCH (21:22)
[2019-04-10] MEDS: QUETIAPINE FUMARATE 100 MG TABLET PO SCH (21:23)
[2019-04-11] MEDS: HEPARIN SOD (PORCINE) 5,000 UNIT/ML 1 ML SYRINGE SUBCUT SCH ×3 (05:47→21:18)
[2019-04-11] MEDS: MULTIVITAMINS W-IRON TABLET, CHEWABLE PO SCH (10:41)
[2019-04-11] MEDS: CARVEDILOL 12.5 MG TABLET PO SCH ×2 (10:41→21:17)
[2019-04-11] MEDS: LISINOPRIL 10 MG TABLET PO SCH (10:41)
[2019-04-11] MEDS: SERTRALINE HCL 50 MG TABLET PO SCH (10:42)
[2019-04-11] MEDS: MEGESTROL ACETATE SUSP 400 MG/10 ML UDCUP PO SCH ×2 (10:42→18:08)
[2019-04-11] MEDS: CETIRIZINE 10 MG TABLET PO SCH (10:42)
[2019-04-11] MEDS: RANOLAZINE 500 MG TAB.SR.12H PO SCH ×2 (10:42→21:17)
[2019-04-11] MEDS: FLUTICASONE/VILANTEROL 200-25 MCG/DOSE IH SCH (10:42)
[2019-04-11] MEDS: PANTOPRAZOLE SODIUM 40 MG VIAL IV SCH (11:00)
[2019-04-11] MEDS: PANTOPRAZOLE SODIUM 40 MG TABLET.DR PO SCH ×2 (11:50→21:17)
--- NOTE | 2019-04-11 16:50 | PDOC PROGRESS REPORT ---
Subjective Progress Note for:: 04/11/19 Subjective:: No adverse events overnight. No new complaints. She was pretty much hostile with me from the moment I walked in the door despite the fact that her daughter encouraged her to be cordial and to talk to me so that I could try to help her. She would not answer any direct questions whatsoever. Reason For Visit: ARF,HYPERKALEMIA,MORBID OBESITY,DEMENTIA Physical Exam Vital Signs: Temp Pulse Resp BP Pulse Ox 97.7 F 61 16 137/51 H 97 04/11/19 16:00 04/11/19 16:00 04/11/19 16:00 04/11/19 16:00 04/11/19 16:00 Intake & Output 04/10/19 04/11/19 04/12/19 06:59 06:59 06:59 Intake Total 300 2135 Output Total 1000 300 Balance -700 1835 Weight 123.6 kg 123.4 kg General appearance: PRESENT: no acute distress, disheveled, morbidly obese. ABSENT: cooperative Head exam: PRESENT: atraumatic, normocephalic Eye exam: PRESENT: EOMI. ABSENT: nystagmus, scleral icterus Ear exam: PRESENT: normal external ear exam Respiratory exam: PRESENT: unlabored. ABSENT: accessory muscle use, prolonged expiratory phas, retraction Extremities exam: ABSENT: clubbing, pedal edema Neurological exam: PRESENT: alert, awake, oriented to person. ABSENT: oriented to situation Psychiatric exam: PRESENT: agitated Results Laboratory Results: 04/09/19 04:35 04/09/19 04:35 04/03/19 04/03/19 04/03/19 03:36 03:36 07:15 Creatine Kinase Cancelled 809 H Troponin I Cancelled 04/03/19 04/06/19 07:15 04:34 Creatine Kinase 229 H Troponin I < 0.012 Impressions: Renal Ultrasound 04/03/19 00:00 IMPRESSION: Normal renal sonogram. Chest X-Ray 04/03/19 02:00 IMPRESSION: No acute cardiopulmonary abnormality copyright 2011 [employer]- All Rights Reserved Cervical Spine CT 04/03/19 02:01 IMPRESSION: No acute fracture or subluxation. TECHNICAL DOCUMENTATION: Quality ID # 436: Final reports with documentation of one or more dose reduction techniques (e.g., Automated exposure control, adjustment of the mA and/or kV according to patient size, use of iterative reconstruction technique) copyright 2010 [employer]- All Rights Reserved Knee X-Ray 04/03/19 02:01 IMPRESSION: No acute fracture or dislocation copyright 2010 [employer]- All Rights Reserved Assessment and Plan - Diagnosis (1) Acute renal failure Is this a current diagnosis for this admission?: Yes Plan: Resolved (2) Agitation Is this a current diagnosis for this admission?: Yes Plan: Persistently agitated, but at rest when not being bothered she seems to do fine, also in the presence of her daughter (3) Dementia Qualifiers: Dementia type: unspecified type Dementia behavioral disturbance: without behavioral disturbance Qualified Code(s): F03.90 - Unspecified dementia without behavioral disturbance Is this a current diagnosis for this admission?: Yes Plan: She seemed content until I came in the room and started trying to talk to her, at which point she became hostile. Her daughter said that she is been like this as her disease has progressed. (4) Obesity Qualifiers: Obesity type: due to excess calories Obesity classification: adult class 3 (BMI >= 40) Serious obesity comorbidity presence: unspecified whether serious comorbidity present Body mass index: BMI 45.0-49.9 Qualified Code(s): E66.01 - Morbid (severe) obesity due to excess calories; Z68.42 - Body mass index (BMI) 45.0-49.9, adult Is this a current diagnosis for this admission?: No Plan: Encouraged lifestyle modification but she told me she was going to do whatever she wants to do (5) Physical deconditioning Is this a current diagnosis for this admission?: Yes Plan: She cannot do very much without assistance from physical therapy. Discharge planning is involved for placement. - Time Time Spent with patient: 15-24 minutes
[2019-04-11] MEDS: ATORVASTATIN CALCIUM 20 MG TABLET PO SCH (21:17)
[2019-04-11] MEDS: QUETIAPINE FUMARATE 100 MG TABLET PO SCH (21:17)
[2019-04-12] MEDS: HEPARIN SOD (PORCINE) 5,000 UNIT/ML 1 ML SYRINGE SUBCUT SCH ×3 (05:06→21:12)
[2019-04-12] MEDS: FLUTICASONE/VILANTEROL 200-25 MCG/DOSE IH SCH (11:13)
[2019-04-12] MEDS: PANTOPRAZOLE SODIUM 40 MG TABLET.DR PO SCH ×2 (11:14→21:12)
[2019-04-12] MEDS: MULTIVITAMINS W-IRON TABLET, CHEWABLE PO SCH (11:14)
[2019-04-12] MEDS: CETIRIZINE 10 MG TABLET PO SCH (11:14)
[2019-04-12] MEDS: CARVEDILOL 12.5 MG TABLET PO SCH ×2 (11:14→21:12)
[2019-04-12] MEDS: SERTRALINE HCL 50 MG TABLET PO SCH (11:14)
[2019-04-12] MEDS: LISINOPRIL 10 MG TABLET PO SCH (11:15)
[2019-04-12] MEDS: MEGESTROL ACETATE SUSP 400 MG/10 ML UDCUP PO SCH ×2 (11:15→17:48)
[2019-04-12] MEDS: RANOLAZINE 500 MG TAB.SR.12H PO SCH ×2 (11:22→21:12)
[2019-04-12] MEDS: NYSTATIN TOPICAL POWDER 15 GM TP SCH ×2 (14:06→17:50)
--- NOTE | 2019-04-12 16:02 | PDOC PROGRESS REPORT ---
Subjective Progress Note for:: 04/12/19 Subjective:: No adverse events overnight. No new complaints. She did not eat much of her breakfast but says she never really eats much early in the morning because she usually gets up later in the morning. She says she feels pretty good. Her nurse reported some excoriation on her skin folds and was asking for some nystatin powder. Her daughter reports that she has had problems with urinary incontinence for many years. Reason For Visit: ARF,HYPERKALEMIA,MORBID OBESITY,DEMENTIA Physical Exam Vital Signs: Temp Pulse Resp BP Pulse Ox 98.6 F 64 20 126/42 H 97 04/12/19 12:19 04/12/19 12:19 04/12/19 12:19 04/12/19 12:19 04/12/19 12:19 Intake & Output 04/11/19 04/12/19 04/13/19 06:59 06:59 06:59 Intake Total 2135 591 400 Output Total 300 200 Balance 1835 591 200 Weight 123.4 kg General appearance: PRESENT: no acute distress, disheveled, morbidly obese, cooperative Head exam: PRESENT: atraumatic, normocephalic Eye exam: PRESENT: EOMI. ABSENT: nystagmus, scleral icterus Ear exam: PRESENT: normal external ear exam Respiratory exam: PRESENT: unlabored. ABSENT: accessory muscle use, prolonged expiratory phas, retraction Extremities exam: ABSENT: clubbing, pedal edema Neurological exam: PRESENT: alert, awake, oriented to person. ABSENT: oriented to situation Psychiatric exam: ABSENT: agitated Results Laboratory Results: 04/09/19 04:35 04/09/19 04:35 04/03/19 04/03/19 04/03/19 03:36 03:36 07:15 Creatine Kinase Cancelled 809 H Troponin I Cancelled 04/03/19 04/06/19 07:15 04:34 Creatine Kinase 229 H Troponin I < 0.012 Impressions: Renal Ultrasound 04/03/19 00:00 IMPRESSION: Normal renal sonogram. Chest X-Ray 04/03/19 02:00 IMPRESSION: No acute cardiopulmonary abnormality copyright 2011 [employer]- All Rights Reserved Cervical Spine CT 04/03/19 02:01 IMPRESSION: No acute fracture or subluxation. TECHNICAL DOCUMENTATION: Quality ID # [id number]: Final reports with documentation of one or more dose reduction techniques (e.g., Automated exposure control, adjustment of the mA and/or kV according to patient size, use of iterative reconstruction technique) copyright 2011 [employer]- All Rights Reserved Knee X-Ray 04/03/19 02:01 IMPRESSION: No acute fracture or dislocation copyright 2010 [employer]- All Rights Reserved Assessment and Plan - Diagnosis (1) Acute renal failure Is this a current diagnosis for this admission?: Yes Plan: Resolved (2) Agitation Is this a current diagnosis for this admission?: Yes Plan: Seemingly resolved. She was much more pleasant and interactive today. (3) Dementia Qualifiers: Dementia type: unspecified type Dementia behavioral disturbance: without behavioral disturbance Qualified Code(s): F03.90 - Unspecified dementia without behavioral disturbance Is this a current diagnosis for this admission?: Yes Plan: Cognition is at baseline per family (4) Obesity Qualifiers: Obesity type: due to excess calories Obesity classification: adult class 3 (BMI >= 40) Serious obesity comorbidity presence: unspecified whether serious comorbidity present Body mass index: BMI 45.0-49.9 Qualified Code(s): E66.01 - Morbid (severe) obesity due to excess calories; Z68.42 - Body mass index (BMI) 45.0-49.9, adult Is this a current diagnosis for this admission?: No Plan: Encouraged lifestyle modification but she told me she was going to do whatever she wants to do (5) Physical deconditioning Is this a current diagnosis for this admission?: Yes Plan: She cannot do very much without assistance from physical therapy. Discharge planning is involved for placement. - Time Time Spent with patient: 15-24 minutes
[2019-04-12] MEDS: QUETIAPINE FUMARATE 100 MG TABLET PO SCH (21:12)
[2019-04-12] MEDS: ATORVASTATIN CALCIUM 20 MG TABLET PO SCH (21:12)
[2019-04-13] MEDS: HEPARIN SOD (PORCINE) 5,000 UNIT/ML 1 ML SYRINGE SUBCUT SCH ×3 (05:15→21:19)
[2019-04-13] MEDS: FLUTICASONE/VILANTEROL 200-25 MCG/DOSE IH SCH (11:04)
[2019-04-13] MEDS: MULTIVITAMINS W-IRON TABLET, CHEWABLE PO SCH (11:04)
[2019-04-13] MEDS: PANTOPRAZOLE SODIUM 40 MG TABLET.DR PO SCH ×2 (11:05→21:19)
[2019-04-13] MEDS: SERTRALINE HCL 50 MG TABLET PO SCH (11:05)
[2019-04-13] MEDS: ERGOCALCIFEROL (VITAMIN D2) 50000 UNIT (1.25 MG) CAPSULE PO SCH (11:05)
[2019-04-13] MEDS: CETIRIZINE 10 MG TABLET PO SCH (11:05)
[2019-04-13] MEDS: LISINOPRIL 10 MG TABLET PO SCH (11:05)
[2019-04-13] MEDS: NYSTATIN TOPICAL POWDER 15 GM TP SCH ×2 (11:06→17:50)
[2019-04-13] MEDS: CARVEDILOL 12.5 MG TABLET PO SCH ×2 (11:06→21:18)
[2019-04-13] MEDS: MEGESTROL ACETATE SUSP 400 MG/10 ML UDCUP PO SCH ×2 (11:06→17:50)
[2019-04-13] MEDS: RANOLAZINE 500 MG TAB.SR.12H PO SCH ×2 (11:49→21:19)
[2019-04-13] MEDS: ACETAMINOPHEN 325 MG TABLET PO PRN (11:55)
--- NOTE | 2019-04-13 17:51 | PDOC PROGRESS REPORT ---
Subjective Progress Note for:: 04/13/19 Subjective:: No adverse events overnight. She was sitting up in the chair this morning. She did not eat very much of her breakfast as is her custom. She had no complaints today. Reason For Visit: ARF,HYPERKALEMIA,MORBID OBESITY,DEMENTIA Physical Exam Vital Signs: Temp Pulse Resp BP Pulse Ox 98.4 F 67 16 137/52 H 97 04/13/19 16:20 04/13/19 16:20 04/13/19 16:20 04/13/19 16:20 04/13/19 16:20 Intake & Output 04/12/19 04/13/19 04/14/19 06:59 06:59 06:59 Intake Total 591 820 120 Output Total 200 Balance 591 620 120 General appearance: PRESENT: no acute distress, disheveled, morbidly obese, cooperative Head exam: PRESENT: atraumatic, normocephalic Eye exam: PRESENT: EOMI. ABSENT: nystagmus, scleral icterus Ear exam: PRESENT: normal external ear exam Respiratory exam: PRESENT: unlabored. ABSENT: accessory muscle use, prolonged expiratory phas, retraction Extremities exam: ABSENT: clubbing, pedal edema Neurological exam: PRESENT: alert, awake, oriented to person. ABSENT: oriented to situation Psychiatric exam: ABSENT: agitated Results Laboratory Results: 04/09/19 04:35 04/09/19 04:35 04/03/19 04/03/19 04/03/19 03:36 03:36 07:15 Creatine Kinase Cancelled 809 H Troponin I Cancelled 04/03/19 04/06/19 07:15 04:34 Creatine Kinase 229 H Troponin I < 0.012 Impressions: Renal Ultrasound 04/03/19 00:00 IMPRESSION: Normal renal sonogram. Chest X-Ray 04/03/19 02:00 IMPRESSION: No acute cardiopulmonary abnormality copyright 2010 [employer]- All Rights Reserved Cervical Spine CT 04/03/19 02:01 IMPRESSION: No acute fracture or subluxation. TECHNICAL DOCUMENTATION: Quality ID # 436: Final reports with documentation of one or more dose reduction techniques (e.g., Automated exposure control, adjustment of the mA and/or kV according to patient size, use of iterative reconstruction technique) copyright 2010 [employer]- All Rights Reserved Knee X-Ray 04/03/19 02:01 IMPRESSION: No acute fracture or dislocation copyright 2011 [employer]- All Rights Reserved Assessment and Plan - Diagnosis (1) Acute renal failure Is this a current diagnosis for this admission?: Yes Plan: Resolved (2) Agitation Is this a current diagnosis for this admission?: Yes Plan: Seemingly resolved. She was again pleasant and interactive today. (3) Dementia Qualifiers: Dementia type: unspecified type Dementia behavioral disturbance: without behavioral disturbance Qualified Code(s): F03.90 - Unspecified dementia without behavioral disturbance Is this a current diagnosis for this admission?: Yes Plan: Cognition is at baseline per family (4) Obesity Qualifiers: Obesity type: due to excess calories Obesity classification: adult class 3 (BMI >= 40) Serious obesity comorbidity presence: unspecified whether serious comorbidity present Body mass index: BMI 45.0-49.9 Qualified Code(s): E66.01 - Morbid (severe) obesity due to excess calories; Z68.42 - Body mass index (BMI) 45.0-49.9, adult Is this a current diagnosis for this admission?: No Plan: Encouraged lifestyle modification but she told me she was going to do whatever she wants to do (5) Physical deconditioning Is this a current diagnosis for this admission?: Yes Plan: She cannot do very much without assistance from physical therapy. Discharge planning is involved for placement. Her family would like for her to go to [facility]. - Time Time Spent with patient: 15-24 minutes
[2019-04-13] MEDS: QUETIAPINE FUMARATE 100 MG TABLET PO SCH (21:19)
[2019-04-13] MEDS: ATORVASTATIN CALCIUM 20 MG TABLET PO SCH (21:19)
[2019-04-14] MEDS: HEPARIN SOD (PORCINE) 5,000 UNIT/ML 1 ML SYRINGE SUBCUT SCH ×3 (05:23→23:44)
[2019-04-14] MEDS: ACETAMINOPHEN 325 MG TABLET PO PRN (06:25)
[2019-04-14] MEDS: CARVEDILOL 12.5 MG TABLET PO SCH ×2 (11:00→23:43)
[2019-04-14] MEDS: FLUTICASONE/VILANTEROL 200-25 MCG/DOSE IH SCH (11:00)
[2019-04-14] MEDS: CETIRIZINE 10 MG TABLET PO SCH (11:00)
[2019-04-14] MEDS: SERTRALINE HCL 50 MG TABLET PO SCH (11:00)
[2019-04-14] MEDS: LISINOPRIL 10 MG TABLET PO SCH (11:00)
[2019-04-14] MEDS: RANOLAZINE 500 MG TAB.SR.12H PO SCH ×2 (11:00→23:43)
[2019-04-14] MEDS: NYSTATIN TOPICAL POWDER 15 GM TP SCH ×2 (11:01→17:50)
[2019-04-14] MEDS: MULTIVITAMINS W-IRON TABLET, CHEWABLE PO SCH (11:01)
[2019-04-14] MEDS: PANTOPRAZOLE SODIUM 40 MG TABLET.DR PO SCH ×2 (11:01→23:44)
[2019-04-14] MEDS: MEGESTROL ACETATE SUSP 400 MG/10 ML UDCUP PO SCH ×2 (11:02→17:50)
--- NOTE | 2019-04-14 15:14 | PDOC PROGRESS REPORT ---
Subjective Progress Note for:: 04/14/19 Subjective:: No adverse events overnight. She was lying in bed with her eyes closed. She did not eat very much of her breakfast as is her custom. She had no complaints today. Pleasant and cooperative. Reason For Visit: ARF,HYPERKALEMIA,MORBID OBESITY,DEMENTIA Physical Exam Vital Signs: Temp Pulse Resp BP Pulse Ox 99.4 F 62 14 147/60 H 96 04/14/19 04:00 04/14/19 07:00 04/14/19 04:00 04/14/19 04:00 04/14/19 04:00 Intake & Output 04/13/19 04/14/19 04/15/19 06:59 06:59 06:59 Intake Total 820 520 Output Total 200 Balance 620 520 Weight 123.5 kg General appearance: PRESENT: no acute distress, disheveled, morbidly obese, cooperative Head exam: PRESENT: atraumatic, normocephalic Eye exam: PRESENT: EOMI. ABSENT: nystagmus, scleral icterus Ear exam: PRESENT: normal external ear exam Respiratory exam: PRESENT: unlabored. ABSENT: accessory muscle use, prolonged expiratory phas, retraction Extremities exam: ABSENT: clubbing, pedal edema Neurological exam: PRESENT: alert, awake, oriented to person. ABSENT: oriented to situation Psychiatric exam: ABSENT: agitated Results Laboratory Results: 04/09/19 04:35 04/09/19 04:35 04/03/19 04/03/19 04/03/19 03:36 03:36 07:15 Creatine Kinase Cancelled 809 H Troponin I Cancelled 04/03/19 04/06/19 07:15 04:34 Creatine Kinase 229 H Troponin I < 0.012 Impressions: Renal Ultrasound 04/03/19 00:00 IMPRESSION: Normal renal sonogram. Chest X-Ray 04/03/19 02:00 IMPRESSION: No acute cardiopulmonary abnormality copyright 2010 [employer]- All Rights Reserved Cervical Spine CT 04/03/19 02:01 IMPRESSION: No acute fracture or subluxation. TECHNICAL DOCUMENTATION: Quality ID # 436: Final reports with documentation of one or more dose reduction techniques (e.g., Automated exposure control, adjustment of the mA and/or kV according to patient size, use of iterative reconstruction technique) copyright 2011 [employer]- All Rights Reserved Knee X-Ray 04/03/19 02:01 IMPRESSION: No acute fracture or dislocation copyright 2010 [employer]- All Rights Reserved Assessment and Plan - Diagnosis (1) Acute renal failure Is this a current diagnosis for this admission?: Yes Plan: Resolved (2) Agitation Is this a current diagnosis for this admission?: Yes Plan: Seemingly resolved. She was again pleasant and interactive today. (3) Dementia Qualifiers: Dementia type: unspecified type Dementia behavioral disturbance: without behavioral disturbance Qualified Code(s): F03.90 - Unspecified dementia without behavioral disturbance Is this a current diagnosis for this admission?: Yes Plan: Cognition is at baseline per family (4) Obesity Qualifiers: Obesity type: due to excess calories Obesity classification: adult class 3 (BMI >= 40) Serious obesity comorbidity presence: unspecified whether serious comorbidity present Body mass index: BMI 45.0-49.9 Qualified Code(s): E66.01 - Morbid (severe) obesity due to excess calories; Z68.42 - Body mass index (BMI) 45.0-49.9, adult Is this a current diagnosis for this admission?: No Plan: Encouraged lifestyle modification but she told me she was going to do whatever she wants to do (5) Physical deconditioning Is this a current diagnosis for this admission?: Yes Plan: She cannot do very much without assistance from physical therapy. Discharge planning is involved for placement. Her family would like for her to go to [facility]. - Time Time Spent with patient: 15-24 minutes
[2019-04-14] MEDS: QUETIAPINE FUMARATE 100 MG TABLET PO SCH (23:43)
[2019-04-14] MEDS: ATORVASTATIN CALCIUM 20 MG TABLET PO SCH (23:44)
[2019-04-15] MEDS: HEPARIN SOD (PORCINE) 5,000 UNIT/ML 1 ML SYRINGE SUBCUT SCH ×3 (05:59→22:00)
[2019-04-15] MEDS: FLUTICASONE/VILANTEROL 200-25 MCG/DOSE IH SCH (10:26)
[2019-04-15] MEDS: MEGESTROL ACETATE SUSP 400 MG/10 ML UDCUP PO SCH ×2 (10:41→17:20)
[2019-04-15] MEDS: PANTOPRAZOLE SODIUM 40 MG TABLET.DR PO SCH ×2 (10:41→22:00)
[2019-04-15] MEDS: LISINOPRIL 10 MG TABLET PO SCH (10:41)
[2019-04-15] MEDS: SERTRALINE HCL 50 MG TABLET PO SCH (10:41)
[2019-04-15] MEDS: CETIRIZINE 10 MG TABLET PO SCH (10:41)
[2019-04-15] MEDS: MULTIVITAMINS W-IRON TABLET, CHEWABLE PO SCH (10:41)
[2019-04-15] MEDS: RANOLAZINE 500 MG TAB.SR.12H PO SCH ×2 (10:41→21:59)
[2019-04-15] MEDS: CARVEDILOL 12.5 MG TABLET PO SCH ×2 (10:41→21:58)
[2019-04-15] MEDS: NYSTATIN TOPICAL POWDER 15 GM TP SCH ×2 (10:42→17:20)
[2019-04-15] MEDS: ACETAMINOPHEN 325 MG TABLET PO PRN (13:06)
--- NOTE | 2019-04-15 16:07 | PDOC PROGRESS REPORT ---
Subjective Progress Note for:: 04/15/19 Subjective:: MIGUEL ANGEL MISHRA is a 83 year old female with a past medical history of hypertension, coronary artery disease, hyperlipidemia, bronchial asthma morbid obesity, chronic constipation, generalized debility and dementia. She is a poor historian and subsequently history is obtained from the record. She presents with her son who is no longer available after sustaining multiple falls and worsening generalized weakness. Patient was found unable to get up from the toilet for several hours and brought to the emergency room for evaluation. She denies pain but is otherwise a poor historian only able to defer to her son who is unavailable. In the emergency department she is found to have hyperkalemia without peak T waves and acute renal failure. She is referred to the hospitalist for admission. Medication reconciliation is unavailable. 04/15/2019: This morning patient seen resting on chair. She is awake alert. She is not in pain or distress. Her vital signs and blood works are unremarkable. Her family would like her to go to [facility] nursing home facility. Reason For Visit: ARF,HYPERKALEMIA,MORBID OBESITY,DEMENTIA Physical Exam Vital Signs: Temp Pulse Resp BP Pulse Ox 98.6 F 63 16 137/46 H 96 04/15/19 11:16 04/15/19 11:16 04/15/19 11:16 04/15/19 11:16 04/15/19 11:16 Intake & Output 04/14/19 04/15/19 04/16/19 06:59 06:59 06:59 Intake Total 520 580 592 Output Total 620 Balance 520 -40 592 Weight 123.5 kg 124.7 kg General appearance: PRESENT: no acute distress Head exam: PRESENT: atraumatic Neck exam: ABSENT: carotid bruit, JVD, lymphadenopathy, thyromegaly Respiratory exam: PRESENT: clear to auscultation sheree. ABSENT: rales, rhonchi, wheezes GI/Abdominal exam: PRESENT: normal bowel sounds, soft. ABSENT: distended, guarding, mass, organolmegaly, rebound, tenderness Neurological exam: PRESENT: alert, awake Results Laboratory Results: 04/09/19 04:35 04/09/19 04:35 04/03/19 04/03/19 04/03/19 03:36 03:36 07:15 Creatine Kinase Cancelled 809 H Troponin I Cancelled 04/03/19 04/06/19 07:15 04:34 Creatine Kinase 229 H Troponin I < 0.012 Impressions: Renal Ultrasound 04/03/19 00:00 IMPRESSION: Normal renal sonogram. Chest X-Ray 04/03/19 02:00 IMPRESSION: No acute cardiopulmonary abnormality copyright 2010 [employer]- All Rights Reserved Cervical Spine CT 04/03/19 02:01 IMPRESSION: No acute fracture or subluxation. TECHNICAL DOCUMENTATION: Quality ID # 436: Final reports with documentation of one or more dose reduction techniques (e.g., Automated exposure control, adjustment of the mA and/or kV according to patient size, use of iterative reconstruction technique) copyright 2010 [employer]- All Rights Reserved Knee X-Ray 04/03/19 02:01 IMPRESSION: No acute fracture or dislocation copyright 2010 [employer]- All Rights Reserved Assessment and Plan - Diagnosis (1) Hyperkalemia Is this a current diagnosis for this admission?: Yes Plan: Resolved (2) Acute kidney injury Is this a current diagnosis for this admission?: Yes Plan: Resolved (3) Coronary artery disease Is this a current diagnosis for this admission?: Yes Plan: No anginal symptoms. (4) Morbid obesity Is this a current diagnosis for this admission?: Yes Plan: Lifestyle modification advised (5) Hypertension Qualifiers: Hypertension type: essential hypertension Qualified Code(s): I10 - Essential (primary) hypertension Is this a current diagnosis for this admission?: Yes Plan: Continue home medication
[2019-04-15] MEDS: QUETIAPINE FUMARATE 100 MG TABLET PO SCH (21:59)
[2019-04-15] MEDS: ATORVASTATIN CALCIUM 20 MG TABLET PO SCH (21:59)
[2019-04-16] MEDS: HEPARIN SOD (PORCINE) 5,000 UNIT/ML 1 ML SYRINGE SUBCUT SCH ×3 (05:31→21:34)
[2019-04-16] MEDS: SERTRALINE HCL 50 MG TABLET PO SCH (09:43)
[2019-04-16] MEDS: CARVEDILOL 12.5 MG TABLET PO SCH ×2 (09:43→21:34)
[2019-04-16] MEDS: CETIRIZINE 10 MG TABLET PO SCH (09:43)
[2019-04-16] MEDS: PANTOPRAZOLE SODIUM 40 MG TABLET.DR PO SCH ×2 (09:43→21:34)
[2019-04-16] MEDS: LISINOPRIL 10 MG TABLET PO SCH (09:43)
[2019-04-16] MEDS: MEGESTROL ACETATE SUSP 400 MG/10 ML UDCUP PO SCH ×2 (09:44→18:00)
[2019-04-16] MEDS: MULTIVITAMINS W-IRON TABLET, CHEWABLE PO SCH (09:44)
[2019-04-16] MEDS: FLUTICASONE/VILANTEROL 200-25 MCG/DOSE IH SCH ×2 (09:44→09:51)
[2019-04-16] MEDS: RANOLAZINE 500 MG TAB.SR.12H PO SCH ×2 (09:44→21:33)
[2019-04-16] MEDS: NYSTATIN TOPICAL POWDER 15 GM TP SCH ×2 (09:44→18:01)
--- NOTE | 2019-04-16 17:27 | PDOC PROGRESS REPORT ---
Subjective Progress Note for:: 04/16/19 Subjective:: MIGUEL ANGEL MISHRA is a 83 year old female with a past medical history of hypertension, coronary artery disease, hyperlipidemia, bronchial asthma morbid obesity, chronic constipation, generalized debility and dementia. She is a poor historian and subsequently history is obtained from the record. She presents with her son who is no longer available after sustaining multiple falls and worsening generalized weakness. Patient was found unable to get up from the toilet for several hours and brought to the emergency room for evaluation. She denies pain but is otherwise a poor historian only able to defer to her son who is unavailable. In the emergency department she is found to have hyperkalemia without peak T waves and acute renal failure. She is referred to the hospitalist for admission. Medication reconciliation is unavailable. 04/15/2019: This morning patient seen resting on chair. She is awake alert. She is not in pain or distress. Her vital signs and blood works are unremarkable. Her family would like her to go to [facility] correction facility. 04/16/2019: Patient seen while she is resting on recliner. She is awake alert oriented. No significant change overnight. Reason For Visit: ARF,HYPERKALEMIA,MORBID OBESITY,DEMENTIA Physical Exam Vital Signs: Temp Pulse Resp BP Pulse Ox 99.0 F 63 18 134/78 H 96 04/16/19 07:38 04/16/19 14:00 04/16/19 07:38 04/16/19 07:38 04/16/19 07:38 Intake & Output 04/15/19 04/16/19 04/17/19 06:59 06:59 06:59 Intake Total 580 1042 Output Total 620 Balance -40 1042 Weight 124.7 kg 124.9 kg General appearance: PRESENT: no acute distress, morbidly obese Neurological exam: PRESENT: alert, awake, oriented to person, oriented to place Results Laboratory Results: 04/09/19 04:35 04/09/19 04:35 04/03/19 04/03/19 04/03/19 03:36 03:36 07:15 Creatine Kinase Cancelled 809 H Troponin I Cancelled 04/03/19 04/06/19 07:15 04:34 Creatine Kinase 229 H Troponin I < 0.012 Impressions: Renal Ultrasound 04/03/19 00:00 IMPRESSION: Normal renal sonogram. Chest X-Ray 04/03/19 02:00 IMPRESSION: No acute cardiopulmonary abnormality copyright 2010 [employer]- All Rights Reserved Cervical Spine CT 04/03/19 02:01 IMPRESSION: No acute fracture or subluxation. TECHNICAL DOCUMENTATION: Quality ID # 436: Final reports with documentation of one or more dose reduction techniques (e.g., Automated exposure control, adjustment of the mA and/or kV according to patient size, use of iterative reconstruction technique) copyright 2010 [employer]- All Rights Reserved Knee X-Ray 04/03/19 02:01 IMPRESSION: No acute fracture or dislocation copyright 2010 [employer]- All Rights Reserved Assessment and Plan - Diagnosis (1) Hyperkalemia Is this a current diagnosis for this admission?: Yes Plan: Resolved (2) Acute kidney injury Is this a current diagnosis for this admission?: Yes Plan: Resolved (3) Coronary artery disease Is this a current diagnosis for this admission?: Yes Plan: No anginal symptoms. (4) Morbid obesity Is this a current diagnosis for this admission?: Yes Plan: Lifestyle modification advised (5) Hypertension Qualifiers: Hypertension type: essential hypertension Qualified Code(s): I10 - Essential (primary) hypertension Is this a current diagnosis for this admission?: Yes Plan: Continue home medication
[2019-04-16] MEDS: ATORVASTATIN CALCIUM 20 MG TABLET PO SCH (21:33)
[2019-04-16] MEDS: QUETIAPINE FUMARATE 100 MG TABLET PO SCH (21:35)
[2019-04-17] MEDS: HEPARIN SOD (PORCINE) 5,000 UNIT/ML 1 ML SYRINGE SUBCUT SCH ×3 (06:04→21:12)
[2019-04-17] MEDS: MULTIVITAMINS W-IRON TABLET, CHEWABLE PO SCH (10:28)
[2019-04-17] MEDS: RANOLAZINE 500 MG TAB.SR.12H PO SCH ×2 (10:30→21:12)
[2019-04-17] MEDS: CETIRIZINE 10 MG TABLET PO SCH (10:30)
[2019-04-17] MEDS: CARVEDILOL 12.5 MG TABLET PO SCH ×2 (10:31→21:11)
[2019-04-17] MEDS: OXYCODONE HCL IR 5 MG TABLET PO PRN ×2 (10:33→16:50)
[2019-04-17] MEDS: PANTOPRAZOLE SODIUM 40 MG TABLET.DR PO SCH ×2 (10:34→21:11)
[2019-04-17] MEDS: SERTRALINE HCL 50 MG TABLET PO SCH (10:34)
[2019-04-17] MEDS: NYSTATIN TOPICAL POWDER 15 GM TP SCH ×2 (10:35→18:36)
[2019-04-17] MEDS: LISINOPRIL 10 MG TABLET PO SCH (10:35)
[2019-04-17] MEDS: FLUTICASONE/VILANTEROL 200-25 MCG/DOSE IH SCH (10:40)
[2019-04-17] MEDS: MEGESTROL ACETATE SUSP 400 MG/10 ML UDCUP PO SCH ×2 (10:40→18:36)
--- NOTE | 2019-04-17 17:56 | PDOC PROGRESS REPORT ---
Subjective Subjective:: MIGUEL ANGEL MISHRA is a 83 year old female with a past medical history of hypertension, coronary artery disease, hyperlipidemia, bronchial asthma morbid obesity, chronic constipation, generalized debility and dementia. She is a poor historian and subsequently history is obtained from the record. She presents with her son who is no longer available after sustaining multiple falls and worsening generalized weakness. Patient was found unable to get up from the toilet for several hours and brought to the emergency room for evaluation. She denies pain but is otherwise a poor historian only able to defer to her son who is unavailable. In the emergency department she is found to have hyperkalemia without peak T waves and acute renal failure. She is referred to the hospitalist for admission. Medication reconciliation is unavailable. 04/15/2019: This morning patient seen resting on chair. She is awake alert. She is not in pain or distress. Her vital signs and blood works are unremarkable. Her family would like her to go to [facility]. 04/16/2019: Patient seen while she is resting on recliner. She is awake alert oriented. No significant change overnight. 04/17/2019: Patient seen while resting in bed comfortably and surrounded by family members. Reason For Visit: ARF,HYPERKALEMIA,MORBID OBESITY,DEMENTIA Physical Exam Vital Signs: Temp Pulse Resp BP Pulse Ox 98.0 F 65 16 114/47 L 98 04/17/19 13:14 04/17/19 13:14 04/17/19 13:14 04/17/19 13:14 04/17/19 13:14 Intake & Output 04/16/19 04/17/19 04/18/19 06:59 06:59 06:59 Intake Total 1042 356 Balance 1042 356 Weight 124.9 kg 120 kg General appearance: PRESENT: morbidly obese Neurological exam: PRESENT: alert, awake, oriented to person Results Laboratory Results: 04/09/19 04:35 04/09/19 04:35 04/03/19 04/03/19 04/03/19 03:36 03:36 07:15 Creatine Kinase Cancelled 809 H Troponin I Cancelled 04/03/19 04/06/19 07:15 04:34 Creatine Kinase 229 H Troponin I < 0.012 Impressions: Renal Ultrasound 04/03/19 00:00 IMPRESSION: Normal renal sonogram. Chest X-Ray 04/03/19 02:00 IMPRESSION: No acute cardiopulmonary abnormality copyright 2010 [employer]- All Rights Reserved Cervical Spine CT 04/03/19 02:01 IMPRESSION: No acute fracture or subluxation. TECHNICAL DOCUMENTATION: Quality ID # 436: Final reports with documentation of one or more dose reduction techniques (e.g., Automated exposure control, adjustment of the mA and/or kV according to patient size, use of iterative reconstruction technique) copyright 2010 [employer]- All Rights Reserved Knee X-Ray 04/03/19 02:01 IMPRESSION: No acute fracture or dislocation copyright 2010 [employer]- All Rights Reserved Assessment and Plan - Diagnosis (1) Hyperkalemia Is this a current diagnosis for this admission?: Yes Plan: Resolved (2) Acute kidney injury Is this a current diagnosis for this admission?: Yes Plan: Resolved (3) Coronary artery disease Is this a current diagnosis for this admission?: Yes Plan: No anginal symptoms. (4) Morbid obesity Is this a current diagnosis for this admission?: Yes Plan: Lifestyle modification advised (5) Hypertension Qualifiers: Hypertension type: essential hypertension Qualified Code(s): I10 - Essential (primary) hypertension Is this a current diagnosis for this admission?: Yes Plan: Continue home medication
[2019-04-17] MEDS: ATORVASTATIN CALCIUM 20 MG TABLET PO SCH (21:11)
[2019-04-17] MEDS: QUETIAPINE FUMARATE 100 MG TABLET PO SCH (21:11)
[2019-04-18 03:39] VITALS: BP 128/55
[2019-04-18] MEDS: HEPARIN SOD (PORCINE) 5,000 UNIT/ML 1 ML SYRINGE SUBCUT SCH (05:17)
[2019-04-18 08:09] LABS: ABSOLUTE BASOPHILS # (AUTO) 0.1 10^3/uL (0.0-0.2); ABSOLUTE EOSINOPHILS # (AUTO) 0.2 10^3/uL (0.0-0.6); ABSOLUTE LYMPHOCYTES (AUTO) 6.8 10^3/uL (0.5-4.7); ABSOLUTE NEUT (AUTO) 5.8 10^3/uL (1.7-8.2); BASOPHILS % (AUTO) 0.6 % (0-2); EOSINOPHILS % (AUTO) 1.2 % (0-6); HEMOGLOBIN 10.8 g/dL (12.0-15.5); LYMPHOCYTES % (AUTO) 48.7 % (13-45); MEAN CORPUSCULAR HEMOGLOBIN 29.3 pg (27.0-33.4); MEAN CORPUSCULAR HGB CONC 31.9 g/dL (32.0-36.0); MEAN CORPUSCULAR VOLUME 92 fl (80-97); MONOCYTES % (AUTO) 7.5 % (3-13); PLATELET COUNT 180 10^3/uL (150-450); RED CELL DISTRIBUTION WIDTH 15.1 % (11.5-14.0); TOTAL CELLS COUNTED % (AUTO) 100 %; WHITE BLOOD COUNT 13.9 10^3/uL (4.0-10.5)
[2019-04-18 08:18] LABS: VENOUS BLOOD HCO3 15.1 mmol/L (20-32); VENOUS BLOOD PCO2 54.4 mmHg (35-63)
[2019-04-18 08:20] LABS: VENOUS BLOOD PH 7.06 (7.30-7.42)
[2019-04-18 08:25] LABS: ANION GAP 14 (5-19); BLOOD UREA NITROGEN 14 mg/dL (7-20); CALCIUM 10.1 mg/dL (8.4-10.2); CARBON DIOXIDE 13 mmol/L (22-30); CHLORIDE 112 mmol/L (98-107); GLUCOSE 199 mg/dL (75-110); POTASSIUM 5.6 mmol/L (3.6-5.0); SODIUM 138.9 mmol/L (137-145)
[2019-04-18] MEDS ORDERED: DEXTROSE 5%-WATER 250 ML with EPINEPHRINE/PF 1 MG IV PRN ×2 (08:39)
[2019-04-18] MEDS ORDERED: CALCIUM GLUCONATE 1000 MG/10 ML INJ IV ONE (10:48)
[2019-04-18] MEDS ORDERED: EPINEPHRINE INJ 1 MG/10 ML DISP.SYRIN ONE ×2 (10:48→11:04)
[2019-04-18] MEDS ORDERED: SODIUM BICARBONATE 8.4% INJ 50 MEQ/50 ML DISP.SYRIN ONE (11:04)
--- NOTE | 2019-04-18 11:56 | RADIOLOGY REPORT (SQ) ---
EXAM DESCRIPTION: CHEST SINGLE VIEW COMPLETED DATE/TIME: 04/18/2019 11:14 am REASON FOR STUDY: POST CODE COMPARISON: 04/03/2019 EXAM PARAMETERS: NUMBER OF VIEWS: One view. TECHNIQUE: Single frontal radiographic view of the chest acquired. RADIATION DOSE: NA LIMITATIONS: None. FINDINGS: LUNGS AND PLEURA: Patchy bilateral perihilar airspace disease is present worrisome for acu te pulmonary edema. No pleural effusions. No pneumothorax. MEDIASTINUM AND HILAR STRUCTURES: No masses. Contour normal. HEART AND VASCULAR STRUCTURES: Mild cardiomegaly BONES: No acute findings. HARDWARE: None in the chest. OTHER: Gaseous distention of the stomach fundus IMPRESSION: Bilateral perihilar pulmonary edema Gaseous distention of the stomach fundus TECHNICAL DOCUMENTATION: JOB ID: [id number] [employer]- All Rights Reserved Reading location - IP/workstation name: [email or web address]
--- NOTE | 2019-04-18 16:03 | Death Summary ---
Summary Date : 04/18/19 Time of :: 09:07 Resuscitation Status: Full Code - Final Diagnosis (1) Hyperkalemia Is this a current diagnosis for this admission?: Yes (2) Acute kidney injury Is this a current diagnosis for this admission?: Yes (3) Coronary artery disease Is this a current diagnosis for this admission?: Yes (4) Morbid obesity Is this a current diagnosis for this admission?: Yes (5) Hypertension Is this a current diagnosis for this admission?: Yes Hospital Course:: MIGUEL ANGEL MISHRA is a 83 year old female with a past medical history of hypertension, hyperlipidemia, coronary 30s, myocardial infarction morbid obesity, chronic constipation, generalized debility and dementia. She is a poor historian and subsequently history is obtained from the record. She presents with her son who is no longer available after sustaining multiple falls and worsening generalized weakness. Patient was found unable to get up from the toilet for several hours and brought to the emergency room for evaluation. She denies pain but is otherwise a poor historian only able to defer to her son who is unavailable. In the emergency department she is found to have hyperkalemia without peak T waves and acute renal failure. Patient has been managed accordingly and her hyperkalemia has resolved. Her generalized weakness has improved relatively. Patient has been awaiting placement to rehab center. She has been doing well until this morning. She is coded blue at 7:30 AM this morning because her heart rate dropped to 40s and become unresponsive. Rapid response team arrived immediately and started CPR she got 4 doses of AP and bicarb she is intubated right away. After 30 minutes of resuscitation she started to have pulse and patient transferred to ICU. After long discussion with family members patient is made DNR. At about 9.07 her oral health therapist shows asystole and patient pronounced sedated.
== END 2019-04-18 09:07 | DRG 683 ==
LOC: ER 01:00 → EH 05:50 → 4N 11:45 → 4W 04-14 14:22 → 4S 04-16 12:01 → ICU 04-18 08:44
PROVIDERS: ADMIT Internal Medicine; ATTEND Internal Medicine
DX: N17.9 Acute kidney failure, unspecified (principal); Z68.42 Body mass index [BMI] 45.0-49.9, adult; M62.82 Rhabdomyolysis; E87.5 Hyperkalemia; Z66 Do not resuscitate; I25.10 Atherosclerotic heart disease of native coronary artery without angina pectoris; E78.00 Pure hypercholesterolemia, unspecified; I10 Essential (primary) hypertension; R45.1 Restlessness and agitation; E16.1 Other hypoglycemia; F50.89 Other specified eating disorder; K59.09 Other constipation; F03.90 Unspecified dementia, unspecified severity, without behavioral disturbance, psychotic disturbance, mood disturbance, and anxiety; M19.90 Unspecified osteoarthritis, unspecified site; M51.36 Other intervertebral disc degeneration, lumbar region; E66.01 Morbid (severe) obesity due to excess calories; I25.2 Old myocardial infarction; Z96.653 Presence of artificial knee joint, bilateral; Z60.2 Problems related to living alone; Z91.81 History of falling
CPT/HCPCS: 36415; 51701; 71045; 72125; 76775; 80048; 80053; 81001; 82550; 82570; 82803; 82962; 83036; 83605; 83735; 84300; 84443; 84484; 85025; 87040; 93005; 93010; 94002; 96361; 96374; 99285; J0171; J0360; J0610; J1630; J1644; J1815; J3490; J7030; J7040; J7042; S0164